=== PATIENT | male | born 1950 | race Caucasian/White ===

== ENCOUNTER → 2024-08-03 | Outpatient (CLI) | payer MEDICARE ==
[2024-08-03 09:31] LABS: African American GFR (CKD) >90 (>60 ml/min/1.73 sqM); Blood Urea Nitrogen 7 mg/dL (9-20); Non-African American GFR(CKD) >90 (>60 ml/min/1.73 sqM)
--- NOTE | 2024-08-03 11:24 | CT ---
EXAMINATION TYPE: CT abdomen pelvis w con CT DLP: 1241.8 mGycm, Automated exposure control for dose reduction was used. DATE OF EXAM: 08/03/2024 11:03 AM COMPARISON: CT abdomen pelvis 07/06/2024 CLINICAL INDICATION:Male, 73 years old with history of Hx perforated appendix; Hx perforated appendix . TECHNIQUE: Standard CT of the abdomen and pelvis following the administration of 100 cc of Isovue 3 00 IV contrast material and oral contrast. Coronal and sagittal reformats were performed. FINDINGS: LOWER CHEST: The visualized lung bases are clear. Coronary artery calcifications. ABDOMEN LIVER: Unremarkable GALLBLADDER AND BILE DUCTS: Unremarkable. PANCREAS: Unremarkable. SPLEEN: Unremarkable. ADRENAL GLANDS: Unremarkable. KIDNEYS AND URETERS: No evidence of hydronephrosis or renal calculus. The kidneys enhance symmetrical ly. Right renal subcentimeter cortical cyst. Contrast is demonstrated within both collecting systems and proximal ureters on delayed phase. PELVIS BLADDER: Incompletely distended but grossly unremarkable. REPRODUCTIVE: Prostate is enlarged in size measuring 5.2 cm in transverse dimension. ABDOMEN & PELVIS STOMACH AND BOWEL: Stomach and duodenum are unremarkable. Redemonstration of dilated appendix measuri ng up to 1.5 cm in diameter. This contains a fluid. There is significant improvement in surrounding i nflammatory changes from prior exam. No appendicolith identified. No surrounding fluid collection. En teric contrast reaches the ileocecal junction. No evidence of bowel obstruction. PERITONEUM: No evidence of pneumoperitoneum or free fluid. VASCULATURE: Moderate atherosclerotic calcifications are present throughout the abdominal aorta and i ts branches. Tortuosity of the abdominal aorta. Stable fusiform infrarenal abdominal aortic aneurysm measuring up to 4.0 cm with eccentric mural thrombus. MUSCULOSKELETAL: No acute osseous abnormalities. 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 Degenerative disc disease at L3-L4. LYMPH NODES: No evidence for lymphadenopathy. SOFT TISSUE/ABDOMINAL WALL: Unremarkable IMPRESSION: 1. Redemonstration of dilated appendix most consistent with acute appendicitis however there is sign ificant improvement in surrounding inflammatory changes from prior exam on 07/06/2024. No evidence for perforation or surrounding abscess on current exam. 2. Stable infrarenal abdominal aortic aneurysm measuring up to 4.0 cm. 3. Prostatomegaly. [facility], , 08/03/2024 11:21 AM
== END | disposition home or self-care (01) ==
LOC: RADCTMAIN 08:22
PROVIDERS: ATTEND Surgery
DX: K35.32 Acute appendicitis with perforation, localized peritonitis, and gangrene, without abscess (principal); I71.43 Infrarenal abdominal aortic aneurysm, without rupture; N40.0 Benign prostatic hyperplasia without lower urinary tract symptoms
CPT/HCPCS: 82565; 84520; 74177; 36415; Q9967

== ENCOUNTER 2024-08-04 10:52 | Emergency (ER) | payer MEDICARE ==
--- NOTE | 2024-08-04 11:36 | ED ---
General Adult HPI - General Chief complaint: Abdominal Pain Stated complaint: abd pain Time Seen by Provider: 08/04/24 11:09 Source: patient, RN notes reviewed Mode of arrival: ambulatory Limitations: no limitations - History of Present Illness Initial comments: Patient is a 73-year-old male present to the emergency department with abdominal discomfort. Onset of symptoms was the past couple of days. Discomfort is mild. Patient did have outpatient CT scan concerning for a dilated appendix. No fevers. No nausea or vomiting. Patient did have perforated appendicitis with surgical intervention a month ago. Patient was cleaned out however was unable to have appendix removed at that time. - Related Data Home Medications Medication Instructions Recorded Confirmed Acetaminophen Tab [Tylenol Tab] 1,000 mg PO QID PRN 08/04/24 08/04/24 Previous Rx's Medication Instructions Recorded amLODIPine [Norvasc] 10 mg PO DAILY #30 tab 07/13/24 Allergies Allergy/AdvReac Type Severity Reaction Status Date / Time No Known Allergies Allergy Verified 08/04/24 11:40 Review of Systems ROS Statement: Those systems with pertinent positive or pertinent negative responses have been documented in the HPI. ROS Other: All systems not noted in ROS Statement are negative. Constitutional: Denies: fever Eyes: Denies: eye pain ENT: Denies: ear pain Respiratory: Denies: dyspnea Cardiovascular: Denies: chest pain Gastrointestinal: Reports: as per HPI, abdominal pain Neurological: Denies: weakness Past Medical History Past Medical History: No Reported History History of Any Multi-Drug Resistant Organisms: None Reported Past Surgical History: Appendectomy Past Anesthesia/Blood Transfusion Reactions: No Reported Reaction Past Psychological History: No Psychological Hx Reported Smoking Status: Former smoker Past Alcohol Use History: None Reported Past Drug Use History: None Reported General Exam Limitations: no limitations General appearance: alert, in no apparent distress Head exam: Present: normocephalic Eye exam: Present: normal appearance Neck exam: Present: normal inspection Respiratory exam: Present: normal lung sounds bilaterally Cardiovascular Exam: Present: regular rate, normal rhythm GI/Abdominal exam: Present: soft, tenderness (Mild tenderness right lower abdom en), normal bowel sounds. Absent: distended, guarding, rebound, rigid, pulsatile mass Extremities exam: Present: normal inspection Neurological exam: Present: alert Psychiatric exam: Present: normal affect, normal mood Skin exam: Present: normal color Course Vital Signs 03/05/25 10:54 Temperature 98 F Pulse Rate 80 Respiratory 20 Rate Blood Pressure 162/96 O2 Sat by Pulse 98 Oximetry Medical Decision Making - Medical Decision Making Was pt. sent in by a medical professional or institution ([facility], [facility] [employer], urgent care, hospital, or skilled nursing...) When possible be specific @ -Patient was sent in by primary care physician Did you speak to anyone other than the patient for history (EMS, parent, family, police, friend...)? What history was obtained from this source @ -Family is present helps provide history including previous surgery and recent CT Did you review nursing and triage notes (agree or disagree)? Why? @ -I reviewed and agree with nursing and triage notes Were old charts reviewed (outside hosp., previous admission, EMS record, old EKG, old radiological studies, urgent care reports/EKG's, skilled nursing records)? Report findings @ -Previous admission surgical report reviewed. Differential Diagnosis (chest pain, altered mental status, abdominal pain women, abdominal pain men, vaginal bleeding, weakness, fever, dyspnea, syncope, headache, dizziness, GI bleed, back pain, seizure, CVA, palpatations, mental health, musculoskeletal)? @ -Differential Abdominal Pain Men: Appendicitis, cholecystitis, diverticulosis, ischemic bowel, pancreatitis, hepat itis, UTI, gastroenteritis, AAA, incarcerated hernia, bowel obstruction, constipation, inflammatory bowel, hepatitis, peptic ulcer disease, splenic infarction, perforated viscus, testicular torsion, this is not meant to be an all-inclusive list EKG interpreted by me (3pts min.). @ -As above X-rays interpreted by me (1pt min.). @ -None done CT interpreted by me (1pt min.). @ -None done U/S interpreted by me (1pt. min.). @ -None done What testing was considered but not performed or refused? (CT, X-rays, U/S, labs)? Why? @ -Consider CT scan however was done prior to arrival What meds were considered but not given or refused? Why? @ -None Did you discuss the management of the patient with other professionals (professionals i.e. [facility], [employer], lab, RT, psych nurse, neonatal social worker, group home manager, t eacher, retail loss prevention officer, disease case manager)? Give summary @ -Case was discussed with Dr. Hanley. This includes patient presentation, CT results and blood work. He did discuss case with also with Dr. Ni. He did state if patient wants to go home and follow-up that is acceptable and they will plan with further surgery next month as planned. If patient is having pain and are uncomfortable with that he can stay for further care at this time. Was smoking cessation discussed for >3mins.? @ -No Was critical care preformed (if so, how long)? @ -No Were there social determinants of health that impacted care today? How? (Homelessness, low income, unemployed, alcoholism, drug addiction, transportation, low edu. Level, literacy, decrease access to med. care, senior care, rehab)? @ -No Was there de-escalation of care discussed even if they declined (Discuss DNR or withdrawal of care, Hospice)? DNR status @ -No What co-morbidities impacted this encounter? (DM, HTN, Smoking, COPD, CAD, Cancer, CVA, ARF, Chemo, Hep., AIDS, mental health diagnosis, sleep apnea, morbid obesity)? @ -Recent ruptured appendicitis Was patient admitted / discharged? Hospital course, mention meds given and route, prescriptions, significant lab abnormalities, going to OR and other pertinent info. @ -Patient presents with abdominal discomfort and dilated appendix on CT. Abdomen is soft with mild tenderness right lower abdomen. On reevaluation patient is updated on results and recommendation. Patient states he is doing well and wants to go for follow-up. Patient does not want to stay in the hospital. Undiagnosed new problem with uncertain prognosis? @ -No Drug Therapy requiring intensive monitoring for toxicity (Heparin, Nitro, Insulin, Cardizem)? @ -No Were any procedures done? @ -No Diagnosis/symptom? @ -Abdominal pain Acute, or Chronic, or Acute on Chronic? @ -Acute on chronic Uncomplicated (without systemic symptoms) or Complicated (systemic symptoms)? @ -Default Side effects of treatment? @ -No Exacerbation, Progression, or Severe Exacerbation? @ -No Poses a threat to life or bodily function? How? (Chest pain, [place], [place], pneumonia, PE, COPD, DKA, ARF, appy, cholecystitis, CVA, Diverticulitis, Homicidal, Suicidal, threat to staff... and all critical care pts) @ -No - Lab Data Result diagrams: 08/04/24 12:04 08/04/24 12:04 Lab Results 08/04/24 08/04/24 08/04/24 Range/Units 12:04 12: 12:04 WBC 7.7 (3.8-10.6) k/uL RBC 5.17 (4.30-5.90) m/uL Hgb 14.7 (13.0-17.5) gm/dL Hct 45.7 (39.0-53.0) % MCV 88.4 (80.0-100.0) fL MCH 28.4 (25.0-35.0) pg MCHC 32.1 (31.0-37.0) g/dL RDW 13.2 (11.5-15.5) % Plt Count 286 (150-450) k/uL MPV 7.3 Neutrophils % 71 % Lymphocytes % 18 % Monocytes % 6 % Eosinophils % 2 % Basophils % 1 % Neutrophils # 5.5 (1.3-7.7) k/uL Lymphocytes # 1.4 (1.0-4.8) k/uL Monocytes # 0.5 (0-1.0) k/uL Eosinophils # 0.2 (0-0.7) k/uL Basophils # 0.0 (0-0.2) k/uL PT 10.7 (10.0-12.5) sec INR 1.0 (<1.2) APTT 23.0 (22.0-30.0) sec Sodium 137 (137-145) mmol/L Potassium 4.2 (3.5-5.1) mmol/L Chloride 102 (98-107) mmol/L Carbon Dioxide 25 (22-30) mmol/L Anion Gap 10 mmol/L BUN 9 (9-20) mg/dL Creatinine 0.56 L (0.66-1.25) mg/dL Est GFR (CKD-EPI)AfAm >90 (>60 ml/min/1.73 sqM) Est GFR (CKD-EPI)NonAf >90 (>60 ml/min/1.73 sqM) Glucose 100 H (74-99) mg/dL Calcium 9.5 (8.4-10.2) mg/dL Total Bilirubin 0.4 (0.2-1.3) mg/dL AST 18 (17-59) U/L ALT 19 (4-49) U/L Alkaline Phosphatase 68 (38-126) U/L Total Protein 7.2 (6.3-8.2) g/dL Albumin 4.3 (3.5-5.0) g/dL Amylase 51 (30-110) U/L Lipase 67 (23-300) U/L Disposition Clinical Impression: Abdominal pain Disposition: HOME SELF-CARE Condition: Stable Instructions (If sedation given, give patient instructions): Abdominal Pain (ED) Additional Instructions: Please do follow-up with your surgeon in the next day or 2 for recheck. Return for increased pain, fever, vomiting, worsening or changing symptoms or any other concerns. Is patient prescribed a controlled substance at d/c from ED?: No Referrals: Boaz Larios MD [Primary Care Provider] - 1-2 days Time of Disposition: 14:15
[2024-08-04 12:17] LABS: Basophils % (A) 1 %; Eosinophils # (A) 0.2 k/uL (0-0.7); Eosinophils % (A) 2 %; HCT 45.7 % (39.0-53.0); HGB 14.7 gm/dL (13.0-17.5); Lymphocytes # (A) 1.4 k/uL (1.0-4.8); Lymphocytes % (A) 18 %; MCH 28.4 pg (25.0-35.0); MCHC 32.1 g/dL (31.0-37.0); MCV 88.4 fL (80.0-100.0); Mean Platelet Volume 7.3; Monocytes # (A) 0.5 k/uL (0-1.0); Monocytes % (A) 6 %; Neutrophils # (A) 5.5 k/uL (1.3-7.7); Neutrophils % (A) 71 %; Platelet Count 286 k/uL (150-450); RBC 5.17 m/uL (4.30-5.90); RDW 13.2 % (11.5-15.5); WBC 7.7 k/uL (3.8-10.6)
[2024-08-04 12:36] LABS: ALT 19 U/L (4-49); AST 18 U/L (17-59); African American GFR (CKD) >90 (>60 ml/min/1.73 sqM); Albumin 4.3 g/dL (3.5-5.0); Alkaline Phosphatase 68 U/L (38-126); Amylase 51 U/L (30-110); Anion Gap 10 mmol/L; Blood Urea Nitrogen 9 mg/dL (9-20); Calcium 9.5 mg/dL (8.4-10.2); Carbon Dioxide 25 mmol/L (22-30); Chloride 102 mmol/L (98-107); Glucose 100 mg/dL (74-99); Lipase 67 U/L (23-300); Non-African American GFR(CKD) >90 (>60 ml/min/1.73 sqM); Potassium 4.2 mmol/L (3.5-5.1); Sodium 137 mmol/L (137-145); Total Bilirubin 0.4 mg/dL (0.2-1.3); Total Protein 7.2 g/dL (6.3-8.2)
[2024-08-04 12:51] LABS: Prothrombin Time 10.7 sec (10.0-12.5)
[2024-08-04 14:09] VITALS: BP 134/81; PULSE 75; RESP 18; TEMP 98.5
== END 2024-08-04 14:24 | disposition home or self-care (01) ==
LOC: EC 10:52
DX: R10.31 Right lower quadrant pain (principal); Z87.891 Personal history of nicotine dependence
CPT/HCPCS: 36415; 80053; 82150; 83690; 85025; 85610; 85730; 99284

== ENCOUNTER 2024-08-31 13:20 | Day surgery (SDC) | payer MEDICARE ==
[2024-08-30 10:48] VITALS: BMI 28.5
[~2024-08-31 13:20] MED LIST: LIDOCAINE 1% (10MG/ML) FOR IV START INTRADERMA PRN
[2024-08-31 13:57] VITALS: TEMP 98.8
[2024-08-31] MEDS: IV FLUID CONTINUATION 1,000 ML IV ONE (14:05)
[2024-08-31] MEDS: LACTATED RINGERS 1,000 ML IV SCH (14:06)
[2024-08-31] MEDS ORDERED: PROPOFOL 10 MG/ML 20 ML VIAL IV ONE (15:53)
[2024-08-31 16:26] VITALS: RESP 16
[2024-08-31 16:47] VITALS: BP 126/69; PULSE 71
--- NOTE | 2024-08-31 20:52 | P.OP ---
Date of Procedure: 08/31/24 Preoperative Diagnosis: Constipation Postoperative Diagnosis: Sessile Sigmoid Polyp Procedure(s) Performed: Colonoscopy with Polyp Biopsy Anesthesia: MAC Surgeon: Estiven Mcclendon Pathology: other (Polyp Biopsy) Condition: stable Disposition: PACU Description of Procedure: After informed consent was obtained, the patient was placed in the left lateral position and the above medications were titrated with adequate sedation. Monitoring was provided throughout the entire procedure. Digital rectal exam was performed revealing normal sphincter tone and no external hemorrhoids. The colonoscope was inserted into rectum and advanced under direct visualization, without difficulty, to the cecum, where the cecal strap, appendiceal orifice, and the ileocecal valve were identified. The quality of the preparation was good. The colonoscope was then withdrawn while carefully examining the mucosa. The colonic mucosa appeared normal with normal vascularity and haustral markings. No masses, AVM/s or diverticula were seen. There was a sessile sigmoid colon polyp was noted. A cold biopsy was performed of the polyp. On retroflexed view in the rectum, there were no internal hemorrhoids. The endoscope was removed and the procedure terminated. The patient tolerated the procedure well without complications.
== END 2024-08-31 17:05 | disposition home or self-care (01) ==
LOC: ORWHC2ENDO 13:20
PROVIDERS: ATTEND Surgery
DX: K56.41 Fecal impaction (principal); D12.7 Benign neoplasm of rectosigmoid junction
CPT/HCPCS: 88305; 45380; J2704

== ENCOUNTER 2024-10-05 10:46 | Day surgery (SDC) | payer MEDICARE ==
[2024-09-30 14:07] VITALS: BMI 30.4
[~2024-10-05 10:46] MED LIST changes: +HYDROmorphone 0.5 MG/0.5 ML SYRINGE IVP PRN; +MIDAZOLAM 2 MG/2 ML VIAL IV PRN; +fentaNYL (PF) 50 MCG/ML 2 ML AMP IVP PRN
[2024-10-05] MEDS: LACTATED RINGERS 1,000 ML IV SCH (11:39)
[2024-10-05] MEDS: DEXAMETHASONE SOD PHOSPHATE 4 MG/ML 1 ML VIAL IV ONE (11:40)
[2024-10-05] MEDS: ONDANSETRON 4 MG/2 ML VIAL IVP ONE (11:40)
[2024-10-05] MEDS: HEPARIN SODIUM,PORCINE 5,000 UNIT/ML 1 ML VIAL SQ PRN (11:43)
[2024-10-05] MEDS: IV FLUID CONTINUATION 1,000 ML IV ONE (11:45)
[2024-10-05] MEDS ORDERED: fentaNYL (PF) 50 MCG/ML 2 ML AMP ONE (14:12)
[2024-10-05] MEDS ORDERED: ROCURONIUM 10 MG/ML (5 ML VIAL) IV ONE (14:12)
[2024-10-05] MEDS ORDERED: PROPOFOL 10 MG/ML 20 ML VIAL IV ONE (14:12)
[2024-10-05] MEDS ORDERED: NEOSTIGMINE 1 MG/ML 10 ML VIAL ONE (14:12)
[2024-10-05] MEDS ORDERED: GLYCOPYRROLATE 0.2 MG/ML 2 ML VIAL ONE (14:12)
[2024-10-05] MEDS ORDERED: HYDROmorphone (PF) 1 MG/ML ONE (14:12)
[2024-10-05] MEDS ORDERED: SUCCINYLCHOLINE CHLORIDE 200 MG/10 ML VIAL IV ONE (14:12)
[2024-10-05] MEDS ORDERED: MIDAZOLAM 2 MG/2 ML VIAL ONE (14:12)
[2024-10-05] MEDS ORDERED: LIDOCAINE 1% INJ 10MG/ML (20 ML MDV) ONE (14:12)
[2024-10-05] MEDS: ceFAZolin 2 GM in DEXTROSE 5% IN WATER 50 ML IVPB PRN (14:17)
[2024-10-05] MEDS ORDERED: HYDROmorphone 1 MG/ML 1 ML SYRINGE IVP PRN (15:57)
[2024-10-05] MEDS ORDERED: ONDANSETRON 4 MG/2 ML VIAL IVP PRN (17:10)
[2024-10-05] MEDS: PIPERACILLIN-TAZOBACTAM 3.375 GM in SODIUM CHLORIDE 0.9% 100 ML IVPB SCH (18:51)
--- NOTE | 2024-10-05 19:37 | P.CONS ---
History of Present Illness - Reason for Consult Consult date: 10/05/24 - History of Present Illness History of present illness; Patient is a 73-year-old male with history of hypertension, hyperlipidemia who presents for planned appendectomy with possible ileocecectomy. This July, patient had ruptured appendicitis status post partial appendectomy with drainage which was complicated by sepsis. He did undergo colonoscopy with no malignant findings. Patient then followed up with general surgery outpatient and had planned surgery today. Patient is now postop with no known surgical complications. Patient is sitting up in bed resting with no complaints of pain. Patient reports absence of fever, chills, chest pain, palpitations, dyspnea, cough, nausea, vomiting, abdominal pain. Internal medicine was consulted for medical management. REVIEW OF SYSTEMS: All systems reviewed, pertinent positives and negatives noted in HPI. All other symptoms are negative. PHYSICAL EXAMINATION: Vitals reviewed GENERAL: Resting comfortably in bed. Obese. EYES: PERRL, no scleral injection or icterus. No vision loss HENT: Normocephalic, atraumatic, hearing grossly intact, moist mucous membranes NECK: No tracheal deviation, full range of motion. CARDIOVASCULAR: S1 and S2 present. No murmurs, rubs, or gallops. PULMONARY: Chest is clear to auscultation, no wheezing, rhonchi, or crackles. ABDOMEN: Soft, nontender, nondistended. No palpable organomegaly. Closed surgical site incisions. MUSCULOSKELETAL: No apparent joint swelling and deformities. EXTREMITIES: No apparent cyanosis, clubbing. No pedal edema. NEUROLOGICAL: Alert and oriented. Gross neurological examination with no appa rent focal deficits. No labs or imaging completed. Assessment and plan Patient is a 73-year-old male with history of hypertension, hyperlipidemia who presents for planned appendectomy with possible ileocecectomy. #Hypertension Resume home Norvasc 10 mg #Hyperlipidemia Resume home Lipitor 40 mg # Laproscopic Appendectomy -Pain management and DVT prophylaxis per primary surgical team - On IV Zosyn per surgery, consider discontinuing F: IV LR 20 mL/hr E: Replete as needed N: Clear liquid diet Code status: Full code Patient is otherwise medically optimized for discharge Follow up CBC and BMP in AM Dictation was produced using [employer] dictation software. Please excuse any grammatical, word or spelling errors. I have seen and evaluated the patient today. Discussed with the resident and agree with the residents finding and plan as documented in the resident's note. Changes highlighted in blue font. Past Medical History Past Medical History: Hyperlipidemia, Hypertension Additional Past Medical History / Comment(s): ruptured appendix 07/06/24 - 07/13/24, 4.1cm AAA is being monitored History of Any Multi-Drug Resistant Organisms: None Reported Past Surgical History: Appendectomy Additional Past Surgical History / Comment(s): laparoscopy w/ abdominal washout 07/06/24 Past Anesthesia/Blood Transfusion Reactions: No Reported Reaction Past Psychological History: No Psychological Hx Reported Smoking Status: Former smoker Past Alcohol Use History: None Reported Additional Past Alcohol Use History / Comment(s): quit smoking 07/05/24 smoked 1- 1.5ppd x 50 yrs. Past Drug Use History: None Reported - Past Family History Father Additional Family Medical History / Comment(s): bleeding ulcer, age 59 Mother Family Medical History: Cancer Additional Family Medical History / Comment(s): liver cancer, 58 Medications and Allergies Home Medications Medication Instructions Recorded Confirmed Type Acetaminophen Tab [Tylenol Tab] 1,000 mg PO QID PRN 08/04/24 09/30/24 History amLODIPine [Norvasc] 10 mg PO QAM 08/30/24 09/30/24 History Atorvastatin [Lipitor] 40 mg PO DAILY 09/30/24 09/30/24 History Allergies Allergy/AdvReac Type Severity Reaction Status Date / Time No Known Allergies Allergy Verified 10/05/24 11:22 Physical Exam Vitals: Vital Signs Temp Pulse Pulse Resp BP BP Pulse Ox 10/05/24 18:05 97.3 F L 108 H 18 131/76 95 10/05/24 17:25 95 18 131/69 94 L 10/05/24 17:10 95 18 120/66 93 L 10/05/24 16:55 92 18 133/79 92 L 10/05/24 16:40 96 18 130/70 97 10/05/24 16:25 92 18 143/91 97 10/05/24 16:10 92 18 152/72 91 L 10/05/24 15:55 89 16 155/73 95 10/05/24 15:39 89 16 164/83 92 L 10/05/24 15:24 98.1 F 92 16 181/81 98 10/05/24 11:30 98.1 F 79 16 144/77 98 Intake and Output 10/05/24 10/05/24 10/05/24 06:59 14:59 22:59 Intake Total 1650 0 Output Total 10 Balance 1650 -10 Intake: IV 1650 0 Output: Estimated Blood Loss 10 Other: Weight 91.1 kg 91.1 kg
--- NOTE | 2024-10-06 05:25 | P.PN ---
Progress Note - Text Progress Note Date: 10/05/24 Patient underwent Robotic Interval Appendectomy. Formal Operative Note to follow
[2024-10-06] MEDS: HYDROcodone/APAP 10-325MG 1 EACH TAB PO PRN (07:55)
[2024-10-06] MEDS: amLODIPine 10 MG TAB PO SCH (07:55)
[2024-10-06] MEDS: ATORVASTATIN 40 MG TAB PO SCH (07:55)
[2024-10-06 08:31] LABS: Blood Urea Nitrogen 10.5 mg/dL (9.0-27.0); Calcium 8.9 mg/dL (8.7-10.3); Carbon Dioxide 20.3 mmol/L (21.6-31.8); Chloride 105 mmol/L (96-109); Glucose 116 mg/dL (70-110); Potassium 4.2 mmol/L (3.5-5.5); Sodium 139 mmol/L (135-145)
[2024-10-06 08:32] LABS: Basophils # (A) 0.01 X 10*3/uL (0.00-0.10); Basophils % (A) 0.1 %; Eosinophils # (A) 0 X 10*3/uL (0.04-0.35); Eosinophils % (A) 0 %; HCT 40.9 % (39.6-50.0); HGB 13.6 g/dL (13.0-17.0); Lymphocytes # (A) 1.06 X 10*3/uL (0.90-5.00); Lymphocytes % (A) 10.1 %; MCH 28.8 pg (27.0-32.0); MCHC 33.3 g/dL (32.0-37.0); MCV 86.5 FL (80.0-97.0); Mean Platelet Volume 11.1 FL (9.5-12.2); Monocytes # (A) 0.56 X 10*3/uL (0.20-1.00); Monocytes % (A) 5.3 %; NRBC Per 100 WBC 0 X 10*3/uL (0.00-0.01); Neutrophils # (A) 8.79 X 10*3/uL (1.80-7.70); Neutrophils % (A) 83.9 %; Platelet Count 278 X 10*3/uL (140-440); RBC 4.73 X 10*6/uL (4.40-5.60); RDW 13.8 % (11.5-14.5); WBC 10.48 X 10*3/uL (4.50-10.00)
--- NOTE | 2024-10-06 12:54 | P.PN ---
Subjective Progress Note Date: 10/06/24 SURGICAL PROGRESS NOTE CHIEF COMPLAINT: History of perforated appendicitis HISTORY OF PRESENT ILLNESS: Patient is postop day #1 status post robotic appendectomy. Pain is controlled. Tolerating clear liquid diet. Denies any flatus. Denies any difficulty urinating. Afebrile. WBC 10.48 Hgb 13.6 PHYSICAL EXAM: VITAL SIGNS: Reviewed. GENERAL: Well-developed in no acute distress. ABDOMEN: Soft. Nondistended. Minimal tenderness at incision sites. Incisions clean dry and intact. NEUROLOGIC: Alert and oriented. Cranial nerves II through XII grossly intact. ASSESSMENT: 1. History of perforated appendicitis PLAN: - Advance diet to full liquids - Continue antibiotics -Continue pain management -Encourage patient to ambulate -Anticipate possible discharge tomorrow -DVT prophylaxis subcu heparin Physician [facility] note has been reviewed by physician. Signing provider agrees with the documented findings, assessment, and plan of care. Attestation Patient seen and examined at bedside. Postoperative day #1, robotic appendectomy. Patient appears to be doing well. States pain is controlled. Tolerating clear liquid diet. No flatus or bowel function as of yet. Recommended increasing activity. Will advance diet. Continue antibiotics for now. Likely discharge tomorrow. Marti Hanley, DO Objective - Vital Signs Vital signs: Vital Signs Temp 97.8 F 10/06/24 07:07 Pulse 89 10/06/24 07:07 Resp 16 10/06/24 07:07 BP 169/84 10/06/24 07:07 Pulse Ox 94 L 10/06/24 07:07 FiO2 Intake & Output 10/05/24 10/06/24 10/06/24 18:59 06:59 18:59 Intake Total 1650 520 Output Total 10 Balance 1640 520 Weight 91.1 kg Intake: IV 1650 Oral 520 Output: Estimated Blood Loss 10 Other: Voiding Method Toilet # Voids 5 - Labs CBC & Chem 7: 10/06/24 03:46 10/06/24 03:46 Labs: Abnormal Lab Results - Last 24 Hours (Table) 10/06/24 10/06/24 Range/Units 03:46 03:46 WBC 10.48 H (4.50-10.00) X 10*3/uL Immature Gran # 0.06 H (0.00-0.04) X 10*3/uL Neutrophils # 8.79 H (1.80-7.70) X 10*3/uL Eosinophils # 0 L (0.04-0.35) X 10*3/uL Carbon Dioxide 20.3 L (21.6-31.8) mmol/L Anion Gap 13.70 H (4.00-12.00) mmol/L Glucose 116 H (70-110) mg/dL
--- NOTE | 2024-10-06 15:23 | P.PN ---
Subjective Progress Note Date: 10/06/24 Hospital course: Patient is a very pleasant 73-year-old male with a past medical history of hypertension, hyperlipidemia, and known infrarenal aneurysm measuring up to 4.1 cm.. He is currently admitted under general surgery team status post planned laparoscopic appendectomy. Patient previously diagnosed with ruptured appendicitis and underwent partial appendectomy with drainage, course was complicated by sepsis and therefore further surgical procedures were delayed. Patient underwent laparoscopic appendectomy with Dr. Mcclendon on 10/05/2024. We were consulted for medical management throughout hospitalization. Physical exam: Patient seen and fully evaluated at bedside this morning. He was sitting up in the chair visiting with at bedside. He currently reports feeling great and states pain is much better controlled than anticipated. He is tolerating clear liquid diet and denies having any nausea or vomiting. Vital signs reviewed and stable. General: Nontoxic, no distress and appears stated age. Derm: Skin warm and dry normal coloration for ethnicity. Head: Atraumatic, normocephalic and symmetric. Eyes: EOM's intact, no lid lag, and anicteric sclera Mouth: no lip lesions, mucus membranes moist Cardiovascular: regular rate and rhythm with normal S1S2, no murmur, positive posterior tibial pulses bilaterally, and cap refill < 2 seconds. Lungs: Respirations even, regular, and unlabored on room air. Lungs CTA bilaterally, no rhonchi, no rales, no wheezing, and no accessory muscle usage. Abdominal: soft distended, nontender to palpation, no guarding, no appreciable organomegaly. Laparoscopic incisions intact, no drainage or surrounding erythema. Ext: ROM intact. No gross muscle atrophy, no edema, no contractures Neuro: Speech clear, face symmetrical and CN II-XII grossly intact with no noted focal neuro deficits Psych: Alert and oriented to person, place, time, and situation. Appropriate and pleasant affect. Assessment and Plan of Care: Status post laparoscopic appendectomy - Management per primary admitting general surgery team including DVT prophylaxis, pain management, and advancement of diet. - Currently on DVT prophylaxis with heparin 5000 units every 12 hours. - Continue IV antibiotics with Zosyn 3.375 g every 8 hours. - Encourage use of incentive spirometry. Hypertension - Continue daily medication regimen with amlodipine 10 mg daily. Hyperlipidemia - Continue atorvastatin 40 mg daily. Infrarenal fusiform abdominal aortic aneurysm, 4.1 cm - Continue to follow-up outpatient with vascular surgery outpatient for elisha veillance monitoring and management. - Monitor blood pressures, avoid hypertension. Goal therapeutic range is to maintain systolic pressure less than 140 and diastolic pressure less than 110. Continue amlodipine 10 mg daily. Data reviewed - Morning labs reviewed. CBC showing mild leukocytosis with WBC count of 10.48. BMP showing mild metabolic acidosis with chloride of 105, bicarb of 20.3, and anion gap of 13.70. Blood glucose was 116. - Vital signs reviewed. Blood pressure 132/78, heart rate 80, respiratory rate 17, temp 97.7 F, and SpO2 of 96% on room air Thank you for allowing us to participate in the care of this pleasant patient. Do not hesitate to contact us with questions. Someone can be reached from the [facility] hospitalist group all hours of the day at [phone] or via [employer]. Patient was seen independently by Nurse Pracitioner. This document was prepared using [employer] dictation software. Please allow for e rrors in laboratory tech, while rare they do occur. Jass Phelan NP rendered care for this patient independently, reviewed the findings and plan as documented in the note above and agree with plan. I did not physically speak with or examine the patient on this date. Objective - Vital Signs Vital signs: Vital Signs Temp 97.6 F 10/06/24 00:25 Pulse 91 10/06/24 00:25 Resp 18 10/06/24 00:25 BP 139/80 10/06/24 00:25 Pulse Ox 94 L 10/06/24 00:25 FiO2 Intake & Output 10/05/24 10/06/24 10/06/24 18:59 06:59 18:59 Intake Total 1650 520 Output Total 10 Balance 1640 520 Weight 91.1 kg Intake: IV 1650 Oral 520 Output: Estimated Blood Loss 10 Other: Voiding Method Toilet # Voids 5 - Labs CBC & Chem 7: 10/06/24 03:46 10/06/24 03:46
[2024-10-06] MEDS: HEPARIN SODIUM,PORCINE 5,000 UNIT/ML 1 ML VIAL SQ SCH (20:52)
[2024-10-07 08:31] LABS: HCT 42.7 % (39.6-50.0); MCH 28.6 pg (27.0-32.0); MCHC 32.8 g/dL (32.0-37.0); MCV 87.1 FL (80.0-97.0); Mean Platelet Volume 11.3 FL (9.5-12.2); NRBC Per 100 WBC 0 X 10*3/uL (0.00-0.01); Platelet Count 286 X 10*3/uL (140-440); RDW 13.9 % (11.5-14.5); WBC 10.08 X 10*3/uL (4.50-10.00)
[2024-10-07 08:57] VITALS: BP 152/79; PULSE 79; RESP 17; TEMP 97.5
[2024-10-07 09:06] LABS: BUN/Creat Ratio 12.71 Ratio (12.00-20.00); Blood Urea Nitrogen 8.9 mg/dL (9.0-27.0); Calcium 9.3 mg/dL (8.7-10.3); Carbon Dioxide 19.7 mmol/L (21.6-31.8); Chloride 104 mmol/L (96-109); Glucose 107 mg/dL (70-110); Magnesium 2.1 mg/dL (1.5-2.4); Potassium 3.8 mmol/L (3.5-5.5); Sodium 140 mmol/L (135-145)
--- NOTE | 2024-10-07 12:24 | P.DS ---
Providers Expected date of discharge: 10/07/24 Attending physician: Estiven Mcclendon DO Consults: 10/05/24 15:56 Consult Physician Routine Consulting Provider: Sandra Reilly Consult Reason/Comments: Medical Management Do you want consulting provider notified?: Yes Primary care physician: Hira Larios MD Hospital Course: Discharge diagnosis 1. History of perforated appendicitis Hospital course This is a 73-year-old male with a history of perforated appendicitis. Patient is status post interval robotic appendectomy. Patient tolerated surgery well. His pain is controlled. He has been up ambulating. He is tolerating diet. He is having bowel movements and flatus. Denies any difficulty urinating. Patient is stable for discharge. Please refer to chart for any further details. Physician Drier Tender Naphthalene note has been reviewed by physician. Signing provider agrees with the documented findings, assessment, and plan of care. Attestation Patient seen and examined at bedside. Noted to have history of perforated appendicitis and did provide for interval robotic appendectomy. Patient has been doing well in the postoperative period. Pain is controlled and patient having bowel function. Tolerating diet. Surgically stable for discharge. Marti Hanley DO Patient Condition at Discharge: Stable Plan - Discharge Summary Discharge Rx Participant: No New Discharge Prescriptions: New HYDROcodone/APAP 5-325MG [[place] 5-325] 1 tab PO Q6HR PRN 3 Days #12 tab PRN Reason: Pain Continue Acetaminophen Tab [Tylenol] 1,000 mg PO QID PRN PRN Reason: Fever And/ Or Pain amLODIPine [Norvasc] 10 mg PO QAM Atorvastatin [Lipitor] 40 mg PO DAILY Discharge Medication List Acetaminophen Tab [Tylenol] 1,000 mg PO QID PRN 08/04/24 [History] amLODIPine [Norvasc] 10 mg PO QAM 08/30/24 [History] Atorvastatin [Lipitor] 40 mg PO DAILY 09/30/24 [History] HYDROcodone/APAP 5-325MG [[place] 5-325] 1 tab PO Q6HR PRN 3 Days #12 tab 10/07/24 [Rx] Follow up Appointment(s)/Referral(s): Estiven Mcclendon DO [Medical Doctor] - 1 Week Activity/Diet/Wound Care/Special Instructions: No driving while taking [place] No lifting over 10 pounds You may shower. No soaking or tub baths for 2 weeks Very light activity until you are reevaluated at your follow up appointment with your surgeon Regular diet Discharge Disposition: HOME SELF-CARE
--- NOTE | 2024-10-07 16:11 | P.PN ---
Subjective Progress Note Date: 10/07/24 Hospital course: Patient is a very pleasant 73-year-old male with a past medical history of hypertension, hyperlipidemia, and known infrarenal aneurysm measuring up to 4.1 cm.. He is currently admitted under general surgery team status post planned laparoscopic appendectomy. Patient previously diagnosed with ruptured appendicitis and underwent partial appendectomy with drainage, course was complicated by sepsis and therefore further surgical procedures were delayed. Patient underwent laparoscopic appendectomy with Dr. Mcclendon on 10/05/2024. We were consulted for medical management throughout hospitalization. Physical exam: Patient seen and fully evaluated at bedside this morning. He was sitting up in the chair visiting with at bedside. He currently reports feeling great and states pain remains controlled. He is tolerating a full liquid diet and denies having any nausea, vomiting, or any other complaints at this time. Patient reports passing flatus. Vital signs reviewed and stable. General: Nontoxic, no distress and appears stated age. Derm: Skin warm and dry normal coloration for ethnicity. Head: Atraumatic, normocephalic and symmetric. Eyes: EOM's intact, no lid lag, and anicteric sclera Mouth: no lip lesions, mucus membranes moist Cardiovascular: regular rate and rhythm with normal S1S2, no murmur, positive posterior tibial pulses bilaterally, and cap refill < 2 seconds. Lungs: Respirations even, regular, and unlabored on room air. Lungs CTA bilaterally, no rhonchi, no rales, no wheezing, and no accessory muscle usage. Abdominal: soft distended, nontender to palpation, no guarding, no appreciable organomegaly. Laparoscopic incisions intact, no drainage or surrounding erythema. Ext: ROM intact. No gross muscle atrophy, no edema, no contractures Neuro: Speech clear, face symmetrical and CN II-XII grossly intact with no noted focal neuro deficits Psych: Alert and oriented to person, place, time, and situation. Appropriate and pleasant affect. Assessment and Plan of Care: Status post laparoscopic appendectomy - Management per primary admitting general surgery team including DVT prophylaxis, pain management, and advancement of diet. - Currently on DVT prophylaxis with heparin 5000 units every 12 hours. - Continue IV antibiotics with Zosyn 3.375 g every 8 hours. - Encourage use of incentive spirometry. Hypertension - Continue daily medication regimen with amlodipine 10 mg daily. Hyperlipidemia - Continue atorvastatin 40 mg daily. Infrarenal fusiform abdominal aortic aneurysm, 4.1 cm - Continue to follow-up outpatient with vascular surgery outpatient for surveillance monitoring and management. - Monitor blood pressures, avoid hypertension. Goal therapeutic range is to maintain systolic pressure less than 140 and diastolic pressure less than 110. Continue amlodipine 10 mg daily. Data reviewed -Morning labs reviewed. CBC showing mild leukocytosis with WBC count of 10.08 otherwise normal findings. BMP showing high anion gap metabolic acidosis with chloride of 104, bicarb of 19.7, and anion gap of 16.30. Blood glucose was 107. Magnesium 2.1. -Vital signs reviewed. Blood pressure 152/79, heart rate 79, respiratory rate 17, temp 97.5 F, and SpO2 of 96% on room air Patient medically optimized for discharge once cleared by primary admitting general surgery team. Thank you for allowing us to participate in the care of this pleasant patient. Do not hesitate to contact us with questions. Someone can be reached from the [facility] all hours of the day at [phone] or via [employer]. Patient was seen independently by Nurse Pracitioner. This document was prepared using [employer] dictation software. Please allow for errors in city planner, while rare they do occur. Jass Phelan, MIGUEL A rendered care for this patient independently, reviewed the findings and plan as documented in the note above and agree with plan. I did not physically speak with or examine the patient on this date. Objective - Vital Signs Vital signs: Vital Signs Temp 98.6 F 10/07/24 01:29 Pulse 83 10/07/24 01:29 Resp 20 10/07/24 01:29 BP 148/84 10/07/24 01:29 Pulse Ox 96 10/07/24 01:29 FiO2 Intake & Output 10/06/24 10/07/24 10/07/24 18:59 06:59 18:59 Intake Total 860 340 Balance 860 340 Intake: Intake, IV Titration 100 Amount Piperacillin-Tazobactam 3 100 .375 gm In Sodium Chloride 0.9% 100 ml @ 25 mls/hr IVPB Q8H [facility] Rx#: [id number] Oral 760 340 Other: Voiding Method Toilet # Voids 5 3 - Labs CBC & Chem 7: 10/07/24 04:47 10/07/24 04:47 Labs: Abnormal Lab Results - Last 24 Hours (Table) 10/07/24 Range/Units 04:47 WBC 10.08 H (4.50-10.00) X 10*3/uL
--- NOTE | 2024-10-09 10:44 | P.OP ---
Date of Procedure: 10/05/24 Preoperative Diagnosis: Appendicitis Postoperative Diagnosis: Appendicitis Procedure(s) Performed: Robotic Interval Appendectomy Anesthesia: DIRK Surgeon: Estiven Mcclendon Estimated Blood Loss (ml): 50 Pathology: other (Appendix) Condition: stable Disposition: PACU Description of Procedure: The patient was taken to the operating suite and placed in supine position. Anesthesia was given and endotracheal intubation was performed. The abdomen was prepped and draped in normal sterile fashion. A chung catheter was placed. A timeout was performed. An incision was made at melendrez's point and a 5 mm optiview was used to gain access to the abdomen. The abdomen was insufflated. The patient was positioned. Additional working robotic ports were placed in the abdomen including a 12 mm port in the left lower quadrant. The 5 mm port was exchanged for a 8 mm port. The robot was docked. The abdomen was inspected and there were dense adhesions in the right lower quadrant. The bowel was stuck to the side wall and gently taken down. The appendix was visualized and was noted to be acutely inflamed. A vessel sealer was used to take down the mesoappendix. A robotic 60 mm blue staple load was used to divide the appendix at cecal base. The appendix was removed through the 12 mm port. The robot was undocked and ports were removed. The 12 mm incision was closed with an #0 vicryl suture and a skyler nico device. The incisions were closed with #4-0 monocryl and skin glue was applied. The patient tolerated the procedure well and was sent to the PACU in stable condition.
== END 2024-10-07 13:42 | disposition home or self-care (01) ==
LOC: OR 10:46 → 4SSUR 15:15 → OR 10-07 13:42
PROVIDERS: ATTEND Surgery
DX: K36 Other appendicitis (principal); A41.9 Sepsis, unspecified organism; I10 Essential (primary) hypertension; E78.5 Hyperlipidemia, unspecified; E66.9 Obesity, unspecified; Z68.30 Body mass index [BMI] 30.0-30.9, adult; Z87.891 Personal history of nicotine dependence; Z80.0 Family history of malignant neoplasm of digestive organs; Z90.49 Acquired absence of other specified parts of digestive tract; Z79.02 Long term (current) use of antithrombotics/antiplatelets; Z79.899 Other long term (current) drug therapy
CPT/HCPCS: 44970; 88304; 80048 ×2; 83735; 85025; 85027; J2543 ×3; J2250; J0330; J1644 ×3; J1100; J2710; J0690; J2405; J2003; J3010; J1171; J2704; J1596

== ENCOUNTER 2024-11-04 07:22 | Inpatient (IN) | payer MEDICARE ==
[2024-11-04] MEDS ORDERED: ONDANSETRON 8 MG in SODIUM CHLORIDE 0.9% 50 ML IVPB ONE (07:51)
[2024-11-04] MEDS: SODIUM CHLORIDE 0.9% 1,000 ML IV ONE (08:01)
[2024-11-04] MEDS: ONDANSETRON 4 MG/2 ML VIAL IVP ONE (08:01)
--- NOTE | 2024-11-04 08:01 | ED ---
General Adult HPI <Martín Baker - Last Filed: 11/04/24 09:48> - General Source: patient, family, RN notes reviewed, old records reviewed Mode of arrival: ambulatory Limitations: no limitations <Eran Rincon - Last Filed: 11/04/24 14:29> - General Chief complaint: Abdominal Pain Stated complaint: Vomiting/Abd Pain - History of Present Illness Initial comments: 73-year-old male presents to the ED with complaints of abdominal pain, nausea, and vomiting. Of note patient states he was recently in the hospital a month ago for 2 surgeries which included drain placement after a ruptured appendix and a subsequent surgery to remove the appendix. Reports he has been feeling well since the surgery till the last few days when he started having increased abdominal distention nausea and vomiting. Denies any hematemesis melena or hematochezia. States he has been able to eat some toast and soup but usually vomits it back up few hours later. Reports he has not had any gas and his last bowel movement was yesterday which was mostly watery in nature, has not had a normal bowel movement for approximately 5 to 7 days. Admits that he has been able to keep water down. Reports since his vomiting had continued for the last 2 days he and his decided he was guided to come and get evaluated in the ER. (Eran Rincon) - Related Data Home Medications Medication Instructions Recorded Confirmed amLODIPine [Norvasc] 10 mg PO DAILY 08/30/24 11/04/24 Atorvastatin [Lipitor] 40 mg PO DAILY 09/30/24 11/04/24 Allergies Allergy/AdvReac Type Severity Reaction Status Date / Time No Known Allergies Allergy Verified 11/04/24 13:41 Review of Systems ROS Other: All systems not noted in ROS Statement are negative. <Martín Baker - Last Filed: 11/04/24 09:48> ROS Other: All systems not noted in ROS Statement are negative. <Eran Rincon - Last Filed: 11/04/24 14:29> ROS Statement: Those systems with pertinent positive or pertinent negative responses have been documented in the HPI. Past Medical History Past Medical History: Hyperlipidemia, Hypertension Additional Past Medical History / Comment(s): ruptured appendix 07/06/24 - 07/13/24, 4.1cm AAA is being monitored History of Any Multi-Drug Resistant Organisms: None Reported Past Surgical History: Appendectomy Additional Past Surgical History / Comment(s): laparoscopy w/ abdominal washout 07/06/24 Past Anesthesia/Blood Transfusion Reactions: No Reported Reaction Past Psychological History: No Psychological Hx Reported Smoking Status: Former smoker Past Alcohol Use History: None Reported Past Drug Use History: None Reported - Past Family History Father Additional Family Medical History / Comment(s): bleeding ulcer, age 59 Mother Family Medical History: Cancer Additional Family Medical History / Comment(s): liver cancer, 58 <Eran Rincon - Last Filed: 11/04/24 14:29> General Exam Limitations: no limitations <Eran Rincon - Last Filed: 11/04/24 14:29> - General Exam Comments Initial Comments: GENERAL: In no apparent distress at the time of examination. Pleasant and cooperative. HEENT: Head is atraumatic, normocephalic. Sclerae anicteric. Conjunctivae are clear. Mucus membranes of the mouth are moist. Neck is supple. RESPIRATORY: Clear to auscultation. No wheezes, rales, or rhonchi. No use of accessory muscles. Patient maintaining oxygen saturation greater than 92%. No chest wall tenderness is noted on palpation or with deep breathing. CARDIOVASCULAR: Regular rate and rhythm. S1 and S2 noted. No systolic or diastolic murmur auscultated. No JVD noted. No S3 or S4 noted. GASTROINTESTINAL: Significant distention noted. Abdomen somewhat soft and round. Normal active bowel sounds auscultated x 4 quadrants. No pain or tenderness noted upon palpation. INTEGUMENTARY: No cyanosis. No jaundice. No rashes noted. No cellulitis noted. PSYCHIATRIC: Awake, alert, and oriented X 3. Appropriate affect. Intact judgement and insight. (Eran Rincon) Course <Eran Rincon - Last Filed: 11/04/24 14:29> Vital Signs 11/04/24 11/04/24 11/04/24 07:25 10:44 12:00 Temperature 97.9 F Pulse Rate 92 94 91 Respiratory 19 18 17 Rate Blood Pressure 130/90 147/99 129/91 O2 Sat by Pulse 97 98 98 Oximetry - Reevaluation(s) Reevaluation #1: 11/04/24 09:51 Patient resting comfortably in bed, CT abdomen shows distal small bowel obstruction and CMP showed sodium of 128. (Eran Rincon) Medical Decision Making - Lab Data Result diagrams: 11/04/24 08:00 11/04/24 08:00 <Martín Baker - Last Filed: 11/04/24 09:48> - Lab Data Result diagrams: 11/04/24 08:00 11/04/24 08:00 <Eran Rincon - Last Filed: 11/04/24 14:29> - Medical Decision Making I personally saw the patient and performed the critical portion of the service. I discussed the patient care with the Dr. Coulter. I directed management, care planning and final disposition of the patient. This includes, but not limited to, review of all lab work, radiological studies, EKG's, consultations, vital signs, and nursing notes. EKG interpreted by me (3pts min.) @ [as above] X-Rays interpreted by me (1 pt min.) @ [none] CT interpreted by me ( 1pt min.) @Small bowel obstruction U/S interpreted by me (1 pt min.) @ [none] Critical care time of [0] minutes excluding separately billable procedures was spent in conjunction with critical care activities provided by the Resident and Attending simultaneously. I was present during [no procedures] for all critical portions of the procedure and as immediately available to furnish service during the entire procedure. (Martín Baker) Was pt. sent in by a medical professional or institution (, PA, AUTOMOTIVE SOFTWARE ENGINEER, urgent care, hospital, or alf...) When possible be specific @ -No Did you speak to anyone other than the patient for history (EMS, parent, family, police, friend...)? What history was obtained from this source @ -History also obtained from family Did you review nursing and triage notes (agree or disagree)? Why? @ -I reviewed and agree with nursing and triage notes Were old charts reviewed (outside hosp., previous admission, EMS record, old EKG, old radiological studies, urgent care reports/EKG's, alf records)? Report findings @ -Yes including recent operative notes from Dr. Mcclendon Differential Diagnosis? @ -Differential Abdominal Pain Men: Appendicitis, cholecystitis, diverticulosis, ischemic bowel, pancreatitis, hepatitis, UTI, gastroenteritis, AAA, incarcerated hernia, bowel obstruction, constipation, inflammatory bowel, hepatitis, peptic ulcer disease, splenic infarction, perforated viscus, testicular torsion, this is not meant to be an all-inclusive list EKG interpreted by me (3pts min.). @ -None done X-rays interpreted by me (1pt min.). @ -None done CT interpreted by me (1pt min.). @ -Shows evidence of distal small bowel obstruction U/S interpreted by me (1pt. min.). @ -None done What testing was considered but not performed or refused? (CT, X-rays, U/S, labs)? Why? @ -None What meds were considered but not given or refused? Why? @ -None Did you discuss the management of the patient with other professionals (professionals i.e. , PA, AUTOMOTIVE SOFTWARE ENGINEER, lab, RT, psych nurse, social staff worker, service assistant, teacher, airconditioning drafting officer, shoe caser)? Give summary @ -Dr. Baker discussed case with Dr. Mcclendon who recommended admission to medical team and placement of an NG tube. Was smoking cessation discussed for >3mins.? @ -No Was critical care preformed (if so, how long)? @ -No Were there social determinants of health that impacted care today? How? (Homelessness, low income, unemployed, alcoholism, drug addiction, transportation, low edu. Level, literacy, decrease access to med. care, correction, rehab)? @ -No Was there de-escalation of care discussed even if they declined (Discuss DNR or withdrawal of care, Hospice)? DNR status @ -No What co-morbidities impacted this encounter? (DM, HTN, Smoking, COPD, CAD, Cancer, CVA, ARF, Chemo, Hep., AIDS, mental health diagnosis, sleep apnea, morbid obesity)? @ -None Was patient admitted / discharged? Hospital course, mention meds given and route, prescriptions, significant lab abnormalities, going to OR and other pertinent info. @ -Patient was admitted to the hospital for further evaluation of SBO and hyponatremia (128) NG tube placed, general surgery consulted, admitted to sound physician. Undiagnosed new problem with uncertain prognosis? @ -No Drug Therapy requiring intensive monitoring for toxicity (Heparin, Nitro, Insulin, Cardizem)? @ -No Were any procedures done? @ -No Diagnosis/symptom? @ -SBO and hyponatremia Acute, or Chronic, or Acute on Chronic? @ -Acute Uncomplicated (without systemic symptoms) or Complicated (systemic symptoms)? @ -Default Side effects of treatment? @ -No Exacerbation, Progression, or Severe Exacerbation? @ -No Poses a threat to life or bodily function? How? (Chest pain, USA, GA, pneumonia, PE, COPD, DKA, ARF, appy, cholecystitis, CVA, Diverticulitis, Homicidal, Suicidal, threat to staff... and all critical care pts) @ -Yes, SBO can progress to bowel ischemia and necrosis perforation and sepsis leading to endorgan damage. (Eran Rincon) - Lab Data Lab Results 11/04/24 11/04/24 Range/Units 08:00 08:00 WBC 11.17 H (4.50-10.00) 10*3/uL RBC 5.12 (4.40-5.60) 10*6/uL Hgb 14.6 (13.0-17.0) g/dL Hct 42.6 (39.6-50.0) % MCV 83.2 (80.0-97.0) fL MCH 28.5 (27.0-32.0) pg MCHC 34.3 (32.0-37.0) g/dL Plt Count 330 (140-440) 10*3/uL MPV 9.9 (9.5-12.2) fL Immature Gran % (Auto) 1.3 % Neutrophils % 82.2 % Lymphocytes % 8.3 % Monocytes % 7.7 % Eosinophils % 0.2 % Basophils % 0.3 % Immature Gran # 0.14 H (0.00-0.04) 10*3/uL Neutrophils # 9.19 H (1.80-7.70) 10*3/uL Lymphocytes # 0.93 (0.90-5.00) 10*3/uL Monocytes # 0.86 (0.20-1.00) 10*3/uL Eosinophils # 0.02 L (0.04-0.35) 10*3/uL Basophils # 0.03 (0.00-0.10) 10*3/uL Sodium 128 L (137-145) mmol/L Potassium 4.3 (3.5-5.1) mmol/L Chloride 95 L (98-107) mmol/L Carbon Dioxide 23 (22-30) mmol/L Anion Gap 10 mmol/L BUN 12 (9-20) mg/dL Creatinine 0.58 L (0.66-1.25) mg/dL Est GFR (CKD-EPI)AfAm >90 (>60 ml/min/1.73 sqM) Est GFR (CKD-EPI)NonAf >90 (>60 ml/min/1.73 sqM) Glucose 137 H (74-99) mg/dL Calcium 9.0 (8.4-10.2) mg/dL Total Bilirubin 0.7 (0.2-1.3) mg/dL AST 21 (17-59) U/L ALT 15 (4-49) U/L Alkaline Phosphatase 82 (38-126) U/L Total Protein 6.5 (6.3-8.2) g/dL Albumin 3.7 (3.5-5.0) g/dL Disposition <Martín Baker - Last Filed: 11/04/24 09:48> <Eran Rincon - Last Filed: 11/04/24 14:29> Clinical Impression: Hyponatremia, Small bowel obstruction Disposition: ADMITTED IP TO THIS HOSP
[2024-11-04 08:14] LABS: Basophils # (A) 0.03 10*3/uL (0.00-0.10); Basophils % (A) 0.3 %; Eosinophils # (A) 0.02 10*3/uL (0.04-0.35); Eosinophils % (A) 0.2 %; HCT 42.6 % (39.6-50.0); HGB 14.6 g/dL (13.0-17.0); Lymphocytes # (A) 0.93 10*3/uL (0.90-5.00); Lymphocytes % (A) 8.3 %; MCH 28.5 pg (27.0-32.0); MCHC 34.3 g/dL (32.0-37.0); MCV 83.2 fL (80.0-97.0); Mean Platelet Volume 9.9 fL (9.5-12.2); Monocytes # (A) 0.86 10*3/uL (0.20-1.00); Monocytes % (A) 7.7 %; Neutrophils # (A) 9.19 10*3/uL (1.80-7.70); Neutrophils % (A) 82.2 %; Platelet Count 330 10*3/uL (140-440); RBC 5.12 10*6/uL (4.40-5.60); RDW 11.9 % (11.5-14.5); WBC 11.17 10*3/uL (4.50-10.00)
[2024-11-04 08:36] LABS: ALT 15 U/L (4-49); AST 21 U/L (17-59); African American GFR (CKD) >90 (>60 ml/min/1.73 sqM); Albumin 3.7 g/dL (3.5-5.0); Alkaline Phosphatase 82 U/L (38-126); Anion Gap 10 mmol/L; Blood Urea Nitrogen 12 mg/dL (9-20); Carbon Dioxide 23 mmol/L (22-30); Chloride 95 mmol/L (98-107); Glucose 137 mg/dL (74-99); Non-African American GFR(CKD) >90 (>60 ml/min/1.73 sqM); Potassium 4.3 mmol/L (3.5-5.1); Sodium 128 mmol/L (137-145); Total Bilirubin 0.7 mg/dL (0.2-1.3); Total Protein 6.5 g/dL (6.3-8.2)
--- NOTE | 2024-11-04 09:41 | CT ---
EXAMINATION TYPE: CT abdomen pelvis w con DATE OF EXAM: 11/04/2024 COMPARISON: Prior CT August 03, 2024 CLINICAL INDICATION: Male, 73 years old with history of Recent abd surgery, with possible sbo, vomiti ng, abn bowel habits, recent ruptured appendix with 2 surgies for it, TECHNIQUE: CT scan of the abdomen and pelvis is performed with IV Contrast, patient injected with 100 mL of Isov ue 300., (none if empty) Oral contrast used: without Oral Contrast (none if empty) CT DLP: 1556.7 mGycm, Automated exposure control for dose reduction was used. FINDINGS: LUNG BASES: No significant abnormality is appreciated. LIVER/GB: No significant abnormality is appreciated. PANCREAS: No significant abnormality is seen. SPLEEN: No significant abnormality is seen. ADRENALS: Stable small nonspecific 1.8 cm mass left adrenal gland image 25. KIDNEYS: No significant abnormality is seen. BOWEL: Mildly prominent stomach and duodenal sweep. There is gradual transition into fluid prominent and then fluid dilated small bowel loops throughout the abdomen and upper pelvis. Surgical sutures in the right lower quadrant are present. There is moderate ill-defined fluid and fat stranding at this level. There is severe wall thickening of the terminal ileum. Colon is poorly distended with mild to moderate wall thickening. Transition point is likely at this level. No free air. No well formed fluid collection or abscess identified. PROSTATE/SEMINAL VESICLES: No gross abnormality seen. LYMPH NODES: No greater than 1cm abdominal or pelvic lymph nodes are appreciated. OSSEOUS STRUCTURES: Vacuum disc phenomenon at L3-L4 and L4-L5 levels. Moderate disc space narrowing a t L3-L4 level. OTHER: Persistent atherosclerotic and aneurysmal abdominal aorta measuring up to 4.0 cm AP diameter a xial image 45. Moderate calcified plaque of the infrarenal abdominal aorta extends into iliac branch vessels. IMPRESSION: Findings are consistent with new distal small bowel obstruction with transition point kelle r the terminal ileum at the site of inflammatory change. Advise surgical evaluation. [facility], , 11/04/2024 9:39 AM
[2024-11-04] MEDS ORDERED: NALOXONE 0.4 MG/ML 1 ML VIAL IV PRN (10:59)
[2024-11-04] MEDS ORDERED: DEXTROSE 50% SYRINGE 50 ML IVP PRN ×2 (11:14)
[2024-11-04] MEDS ORDERED: HYDROmorphone 1 MG/ML 1 ML SYRINGE IVP PRN (11:38)
[2024-11-04] MEDS ORDERED: MORPHINE SULFATE 2 MG/ML SYRINGE IVP PRN (11:38)
[2024-11-04] MEDS ORDERED: PROCHLORPERAZINE INJ 10 MG/2 ML VIAL IVP PRN (11:40)
--- NOTE | 2024-11-04 11:41 | P.HPIM ---
History of Present Illness H&P Date: 11/04/24 Patient is a very pleasant 73-year-old male with medical history of hypertension, hyperlipidemia, known infrarenal aneurysm up to 4.1 cm, history of ruptured appendicitis status post laparoscopic and appendectomy on 10/05/2024, who presented to the ER on 11/04/2024 with abdominal pain, nausea, vomiting. Symptoms occurred couple days ago with increasing abdominal distention, nausea, vomiting. No blood in stool or hematemesis reported. Only was able to eat light food such as toast and soup however would vomit right back up. Last BM 11/03, no passing gas. Patient's present at bedside and provides with collateral history. On my evaluation he continues to complain of intermittent abdominal pain but mostly burping bothers him now. On arrival afebrile, heart rate in 90s, BP 130/90, SPO2 97% on room air. Underwent extensive workup. WBC with leukocytosis 11.17, normal stable hemog lobin and platelet count, sodium low 128, normal potassium, chloride 95, bicarb 23, creatinine 0.58, blood glucose 137, normal AST, ALT, alk phos, CT abdomen pelvis performed and showed new distal small bowel obstruction with transition point near the terminal ileum at the site of inflammatory change. Patient being admitted to internal medicine service with surgery on consult. NG tube placed, patient started on maintenance fluid with normal saline. Pertinent positives and negatives as discussed in HPI, a complete review of systems was performed and all other systems are negative. Patient seen and examined at bedside. Vital signs reviewed General: nontoxic, no distress, appears at stated age Derm: warm, dry Head: atraumatic, normocephalic, symmetric Eyes: EOMI, no lid lag, anicteric sclera, pupils equal round reactive to light ENT: Nose and ears atraumatic Neck: No thyromegaly, supple Mouth: no lip lesion, mucus membranes moist Cardiovascular: S1S2 reg, no murmur, no edema Lungs: clear to auscultation bilateral, no rhonchi, no rales, no wheeze, no accessory muscle use Abdominal: Distended, generalized tenderness present, no bowel sounds, Ext: no gross muscle atrophy, muscle strength muscle strength 5 out of 5 in all 4 extremities, no contractures Neuro: CN II-XII grossly intact Psych: Alert, oriented, appropriate affect Assessment/Plan: Small bowel obstruction history of ruptured appendicitis status post laparoscopic and appendectomy on 10/05/2024 Hypochloremic hyponatremia likely due to volume loss with vomiting - Surgery consulted, appreciate recommendations -Continue bowel rest - NG tube ordered -Accu-Cheks every 6 hours and hypoglycemia precautions -Continue normal saline at 100 cc/h -Morphine 2 mg every 4 hours for moderate pain, Dilaudid 1 mg every 3 hours for severe pain -Zofran 4 mg every 8 hours as needed, Compazine 5 mg every 4 hours as needed -Protonix 40 daily20 Hypertension - hold daily medication regimen with amlodipine 10 mg daily. Hyperlipidemia -hold atorvastatin 40 mg daily. Infrarenal fusiform abdominal aortic aneurysm, 4.1 cm - Continue to follow-up outpatient with vascular surgery outpatient for surveillance monitoring and management. - Monitor blood pressures, avoid hypertension. Goal therapeutic range is to maintain systolic pressure less than 140 and diastolic pressure less than 110. hold amlodipine 10 mg daily. The patient is admitted with an anticipated greater than 2 midnight stay as inpatient status for evaluation of SBO. CODE STATUS: Full code DVT prophylaxis: SCD Anticipated discharge date: TBD Anticipated discharge place: TBD A total of 40 minutes was spent on the care of this complex patient more than 50% of the time was spent in counseling and care coordination. Past Medical History Past Medical History: Hyperlipidemia, Hypertension Additional Past Medical History / Comment(s): ruptured appendix 07/06/24 - 07/13/24, 4.1cm AAA is being monitored History of Any Multi-Drug Resistant Organisms: None Reported Past Surgical History: Appendectomy Additional Past Surgical History / Comment(s): laparoscopy w/ abdominal washout 07/06/24 Past Anesthesia/Blood Transfusion Reactions: No Reported Reaction Past Psychological History: No Psychological Hx Reported Smoking Status: Former smoker Past Alcohol Use History: None Reported Past Drug Use History: None Reported - Past Family History Father Additional Family Medical History / Comment(s): bleeding ulcer, age 59 Mother Family Medical History: Cancer Additional Family Medical History / Comment(s): liver cancer, 58 Medications and Allergies Home Medications Medication Instructions Recorded Confirmed Type Acetaminophen Tab [Tylenol] 1,000 mg PO QID PRN 08/04/24 09/30/24 History amLODIPine [Norvasc] 10 mg PO QAM 08/30/24 09/30/24 History Atorvastatin [Lipitor] 40 mg PO DAILY 09/30/24 09/30/24 History HYDROcodone/APAP 5-325MG [Nallen 1 tab PO Q6HR PRN 3 Days #12 tab 10/07/24 Rx 5-325] Allergies Allergy/AdvReac Type Severity Reaction Status Date / Time No Known Allergies Allergy Verified 11/04/24 07:29 Physical Exam Vitals: Vital Signs Temp Pulse Resp BP Pulse Ox 11/04/24 10:44 94 18 147/99 98 11/04/24 07:25 97.9 F 92 19 130/90 97 Intake and Output 11/03/24 11/04/24 11/04/24 22:59 06:59 14:59 Other: Weight 90.718 kg Results CBC & Chem 7: 11/04/24 08:00 11/04/24 08:00 Labs: Abnormal Lab Results - Last 24 Hours (Table) 11/04/24 11/04/24 Range/Units 08:00 08:00 WBC 11.17 H (4.50-10.00) 10*3/uL Immature Gran # 0.14 H (0.00-0.04) 10*3/uL Neutrophils # 9.19 H (1.80-7.70) 10*3/uL Eosinophils # 0.02 L (0.04-0.35) 10*3/uL Sodium 128 L (137-145) mmol/L Chloride 95 L (98-107) mmol/L Creatinine 0.58 L (0.66-1.25) mg/dL Glucose 137 H (74-99) mg/dL
[2024-11-04] MEDS: PANTOPRAZOLE 40 MG/10 ML VIAL IVP SCH (11:58)
[2024-11-04 12:03] LABS: Glucose,Whole Blood 120 mg/dL (70-110)
[2024-11-04] MEDS: SODIUM CHLORIDE 0.9% 1,000 ML IV SCH (12:06)
--- NOTE | 2024-11-04 14:23 | XR ---
EXAMINATION TYPE: XR chest 1V confirm line [facility] DATE OF EXAM: 11/04/2024 1:21 PM COMPARISON: None. CLINICAL INDICATION: Male, 73 years old with history of NG tube placement, pain TECHNIQUE: AP view(s) obtained. FINDINGS: Nasogastric tube transverses the thorax with the tip in the proximal left upper quadrant of the abdom en.r this can be advanced 5 cm for better positioning. Nonspecific bowel gas is present. Lung bases appear clear heart size is normal IMPRESSION: 1. Nasogastric tube tip within the proximal left upper quadrant abdomen, advanced 5 cm for better po sitioning. [facility], , 11/04/2024 2:21 PM
--- NOTE | 2024-11-04 14:27 | P.GSCN ---
History of Present Illness Consult date: 11/04/24 History of present illness: CHIEF COMPLAINT: Abdominal pain HISTORY OF PRESENT ILLNESS: This is a 73-year-old male who presented the hospital with complaints of abdominal pain with nausea and vomiting x 3 days. Patient reports he did have a small bowel movement yesterday but since then no bowel movements and no flatus. He had a CT scan abdomen pelvis that reported small bowel obstruction with transition point in the terminal ileum. He denies any prior history of small bowel obstruction. Abdominal surgery includes a diagnostic laparoscopy with abdominal washout for ruptured appendicitis on July 06, 2024 and then robotic interval appendectomy on October 05, 2024. Patient reports that he had been doing well after surgery but just within the last 3 days starting having abdominal pain. He does feel distended. He does have NG tube in place, awaiting chest x-ray to check placement. PAST MEDICAL HISTORY: See below PAST SURGICAL HISTORY: See below MEDICATIONS: See below ALLERGIES: See below SOCIAL HISTORY: No illicit drug use. REVIEW OF SYSTEMS: CONSTITUTIONAL: Denies fever or chills. HEENT: Denies blurred vision, vision changes, or eye pain. Denies hemoptysis CARDIOVASCULAR: Denies chest pain or pressure. RESPIRATORY: No shortness of breath. GASTROINTESTINAL: See HPI for pertinent findings HEMATOLOGIC: Denies bleeding disorders. GENITOURINARY: Denies any blood in urine or increased urinary frequency. SKIN: Denies pruitis. Denies rash. PHYSICAL EXAM: VITAL SIGNS: Reviewed GENERAL: Well-developed in no acute distress. HEENT: No sclera icterus. Extraocular movements grossly intact. Moist buccal mucosa. Head is atraumatic, normocephalic. No nasal drainage. ABDOMEN: Distended. Tenderness mid abdomen around umbilicus. Robotic incision sites are healed, dry and intact NEUROLOGIC: Alert and oriented. Cranial nerves II through XII grossly intact. LABORATORY DATA: WBC 11.17 Hgb 14.6 platelets 330 Sodium 128 potassium 4.3 creatinine 0.58 Lactic acid 0.8 IMAGING: CT scan abdomen pelvis reports findings are consistent with new distal small bowel obstruction with transition point near the terminal ileum at the site of i nflammatory change. ASSESSMENT: 1. Small bowel obstruction with transition point near the terminal ileum noted on CT scan 2. Ruptured appendix in July with diagnostic lap and abdominal washout and then Robotic interval appendectomy on October 05, 2024 PLAN: - Continue NG tube for decompression - Keep patient n.p.o. - Continue IV fluids - Continue pain management - Continue antiemetics Physician Dock Grader note has been reviewed by physician. Signing provider agrees with the documented findings, assessment, and plan of care. Past Medical History Past Medical History: Hyperlipidemia, Hypertension Additional Past Medical History / Comment(s): ruptured appendix 07/06/24 - 07/13/24, 4.1cm AAA is being monitored History of Any Multi-Drug Resistant Organisms: None Reported Past Surgical History: Appendectomy Additional Past Surgical History / Comment(s): laparoscopy w/ abdominal washout 07/06/24 Past Anesthesia/Blood Transfusion Reactions: No Reported Reaction Past Psychological History: No Psychological Hx Reported Smoking Status: Former smoker Past Alcohol Use History: None Reported Past Drug Use History: None Reported - Past Family History Father Additional Family Medical History / Comment(s): bleeding ulcer, age 59 Mother Family Medical History: Cancer Additional Family Medical History / Comment(s): liver cancer, 58 Medications and Allergies Home Medications Medication Instructions Recorded Confirmed Type amLODIPine [Norvasc] 10 mg PO DAILY 08/30/24 11/04/24 History Atorvastatin [Lipitor] 40 mg PO DAILY 09/30/24 11/04/24 History Allergies Allergy/AdvReac Type Severity Reaction Status Date / Time No Known Allergies Allergy Verified 11/04/24 13:41 Surgical - Exam Vital Signs Temp Pulse Resp BP Pulse Ox 97.9 F 92 19 130/90 97 11/04/24 07:25 11/04/24 07:25 11/04/24 07:25 11/04/24 07:25 11/04/24 07:25 Results - Labs 11/04/24 08:00 11/04/24 08:00 Abnormal Lab Results - Last 24 Hours (Table) 11/04/24 11/04/24 11/04/24 Range/Units 08:00 08:00 11:57 WBC 11.17 H (4.50-10.00) 10*3/uL Immature Gran # 0.14 H (0.00-0.04) 10*3/uL Neutrophils # 9.19 H (1.80-7.70) 10*3/uL Eosinophils # 0.02 L (0.04-0.35) 10*3/uL Sodium 128 L (137-145) mmol/L Chloride 95 L (98-107) mmol/L Creatinine 0.58 L (0.66-1.25) mg/dL Glucose 137 H (74-99) mg/dL POC Glucose (mg/dL) 120 H (70-110) mg/dL Diabetes panel 11/04/24 Range/Units 08:00 Sodium 128 L (137-145) mmol/L Potassium 4.3 (3.5-5.1) mmol/L Chloride 95 L (98-107) mmol/L Carbon Dioxide 23 (22-30) mmol/L BUN 12 (9-20) mg/dL Creatinine 0.58 L (0.66-1.25) mg/dL Glucose 137 H (74-99) mg/dL Calcium 9.0 (8.4-10.2) mg/dL AST 21 (17-59) U/L ALT 15 (4-49) U/L Alkaline Phosphatase 82 (38-126) U/L Total Protein 6.5 (6.3-8.2) g/dL Albumin 3.7 (3.5-5.0) g/dL Calcium panel 11/04/24 Range/Units 08:00 Calcium 9.0 (8.4-10.2) mg/dL Albumin 3.7 (3.5-5.0) g/dL Pituitary panel 11/04/24 Range/Units 08:00 Sodium 128 L (137-145) mmol/L Potassium 4.3 (3.5-5.1) mmol/L Chloride 95 L (98-107) mmol/L Carbon Dioxide 23 (22-30) mmol/L BUN 12 (9-20) mg/dL Creatinine 0.58 L (0.66-1.25) mg/dL Glucose 137 H (74-99) mg/dL Calcium 9.0 (8.4-10.2) mg/dL Adrenal panel 11/04/24 Range/Units 08:00 Sodium 128 L (137-145) mmol/L Potassium 4.3 (3.5-5.1) mmol/L Chloride 95 L (98-107) mmol/L Carbon Dioxide 23 (22-30) mmol/L BUN 12 (9-20) mg/dL Creatinine 0.58 L (0.66-1.25) mg/dL Glucose 137 H (74-99) mg/dL Calcium 9.0 (8.4-10.2) mg/dL Total Bilirubin 0.7 (0.2-1.3) mg/dL AST 21 (17-59) U/L ALT 15 (4-49) U/L Alkaline Phosphatase 82 (38-126) U/L Total Protein 6.5 (6.3-8.2) g/dL Albumin 3.7 (3.5-5.0) g/dL
--- NOTE | 2024-11-04 14:56 | XR ---
EXAMINATION TYPE: XR chest 1V confirm line [facility] DATE OF EXAM: 11/04/2024 2:50 PM COMPARISON: Earlier exam 11/04/2024 CLINICAL INDICATION: Male, 73 years old with history of NG placement, previous abnormal exam TECHNIQUE: XR chest 1V confirm line [facility] view(s) obtained. FINDINGS: The heart size is normal. The pulmonary vasculature is normal. The lungs are clear. Nasogastric tube transverses the thorax with tip in the left upper quadrant of the abdomen in good po sition. IMPRESSION: 1. No acute pulmonary process. 2. Nasogastric tube in good positioning. [facility], , 11/04/2024 2:53 PM
[2024-11-04 18:26] LABS: Glucose,Whole Blood 103 mg/dL (70-110)
[2024-11-04 23:14] VITALS: RESP 16
[2024-11-05 00:16] LABS: Glucose,Whole Blood 97 mg/dL (70-110)
[2024-11-05 06:02] LABS: Glucose,Whole Blood 94 mg/dL (70-110)
[2024-11-05 08:17] LABS: Basophils # (A) 0.05 X 10*3/uL (0.00-0.10); Basophils % (A) 0.6 %; Eosinophils # (A) 0.09 X 10*3/uL (0.04-0.35); Eosinophils % (A) 1.1 %; HGB 13.9 g/dL (13.0-17.0); Lymphocytes # (A) 1.61 X 10*3/uL (0.90-5.00); Lymphocytes % (A) 19.5 %; MCH 28.3 pg (27.0-32.0); MCHC 33.1 g/dL (32.0-37.0); MCV 85.5 FL (80.0-97.0); Mean Platelet Volume 10.3 FL (9.5-12.2); Monocytes # (A) 0.92 X 10*3/uL (0.20-1.00); Monocytes % (A) 11.1 %; NRBC Per 100 WBC 0 X 10*3/uL (0.00-0.01); Neutrophils # (A) 5.43 X 10*3/uL (1.80-7.70); Neutrophils % (A) 65.8 %; Platelet Count 343 X 10*3/uL (140-440); RBC 4.91 X 10*6/uL (4.40-5.60); RDW 12.2 % (11.5-14.5); WBC 8.26 X 10*3/uL (4.50-10.00)
[2024-11-05 08:30] LABS: ALT 16 U/L (10-49); AST 19 U/L (14-35); Albumin 3.7 g/dL (3.8-4.9); Albumin/Globulin Ratio 1.54 Ratio (1.60-3.17); Alkaline Phosphatase 71 U/L (41-126); Blood Urea Nitrogen 11.9 mg/dL (9.0-27.0); Calcium 8.6 mg/dL (8.7-10.3); Chloride 100 mmol/L (96-109); Globulin 2.4 g/dL (1.6-3.3); Glucose 95 mg/dL (70-110); Potassium 4.4 mmol/L (3.5-5.5); Sodium 133 mmol/L (135-145); Total Bilirubin 0.5 mg/dL (0.3-1.2); Total Protein 6.1 g/dL (6.2-8.2)
[2024-11-05 13:33] LABS: Glucose,Whole Blood 92 mg/dL (70-110)
--- NOTE | 2024-11-05 14:05 | P.PN ---
Subjective Progress Note Date: 11/05/24 SURGICAL PROGRESS NOTE CHIEF COMPLAINT: Partial small bowel obstruction HISTORY OF PRESENT ILLNESS: Patient had a liquidy moderate-sized bowel movement today. NG tube with 100 mL out put last night and about 100 this morning. Bilious in color. Patient still having some abdominal distention and abdominal tenderness. Afebrile. WBC 11.17 down to 8.26 Hgb 13.9 PHYSICAL EXAM: VITAL SIGNS: Reviewed. GENERAL: Well-developed in no acute distress. HEENT: No sclera icterus. Extraocular movements grossly intact. Moist buccal mucosa. Head is atraumatic, normocephalic. ABDOMEN: Soft. Mildly distended. Tenderness palpation mid abdomen NEUROLOGIC: Alert and oriented. Cranial nerves II through XII grossly intact. ASSESSMENT: 1. Partial small bowel obstruction 2. Ruptured appendix in July with diagnostic lap and abdominal washout and then Robotic interval appendectomy on October 05, 2024 PLAN: - Small bowel follow-through ordered for diagnostic and therapeutic management of PSBO - Continue NG tube for decompression - Keep patient n.p.o. - Continue IV fluids Physician Fancy Stitcher note has been reviewed by physician. Signing provider agrees with the documented findings, assessment, and plan of care. Attestation Patient seen and examined at bedside. States he had a liquid stool, moderate- sized today. Nasogastric tube in place with bilious output. Concern for partial small bowel obstruction. Small bowel follow-through ordered for today. Continue nasogastric tube for now. Keep NPO. Case discussed in depth with patient and patient's at bedside. Marti Hanley DO Objective - Vital Signs Vital signs: Vital Signs Temp 97.8 F 11/05/24 13:29 Pulse 88 11/05/24 13:29 Resp 16 11/05/24 13:29 BP 156/82 11/05/24 13:29 Pulse Ox 99 11/05/24 13:29 FiO2 Intake & Output 11/04/24 11/05/24 11/05/24 18:59 06:59 18:59 Output Total 100 Balance -100 Weight 90.718 kg 90.718 kg Output: Gastric Drainage 100 Other: Voiding Method Toilet Urinal # Voids 2 - Labs CBC & Chem 7: 11/05/24 05:19 11/05/24 05:19 Labs: Abnormal Lab Results - Last 24 Hours (Table) 11/05/24 11/05/24 11/05/24 Range/Units 05:19 05:19 05:19 Immature Gran # 0.16 H (0.00-0.04) X 10*3/uL Sodium 133 L (135-145) mmol/L Carbon Dioxide 21.0 L (21.6-31.8) mmol/L Hemoglobin A1c 6.1 H (<=6.0) % Calcium 8.6 L (8.7-10.3) mg/dL Total Protein 6.1 L (6.2-8.2) g/dL Albumin 3.7 L (3.8-4.9) g/dL Albumin/Globulin Ratio 1.54 L (1.60-3.17) Ratio
--- NOTE | 2024-11-05 15:42 | P.PN ---
Subjective Progress Note Date: 11/05/24 Hospital Course: Patient is a very pleasant 73-year-old male with medical history of hypertensi on, hyperlipidemia, known infrarenal aneurysm up to 4.1 cm, history of ruptured appendicitis status post laparoscopic and appendectomy on 10/05/2024, who presented to the ER on 11/04/2024 with abdominal pain, nausea, vomiting. Symptoms occurred couple days ago with increasing abdominal distention, nausea, vomiting. No blood in stool or hematemesis reported. Only was able to eat light food such as toast and soup however would vomit right back up. Last BM 11/03, no passing gas. Patient's present at bedside and provides with collateral history. On my evaluation he continues to complain of intermittent abdominal pain but mostly burping bothers him now. On arrival afebrile, heart rate in 90s, BP 130/90, SPO2 97% on room air. Underwent extensive workup. WBC with leukocytosis 11.17, normal stable hemoglobin and platelet count, sodium low 128, normal potassium, chloride 95, bicarb 23, creatinine 0.58, blood glucose 137, normal AST, ALT, alk phos, CT abdomen pelvis performed and showed new distal small bowel obstruction with transition point near the terminal ileum at the site of inflammatory change. Patient being admitted to internal medicine service with surgery on consult. NG tube placed, patient started on maintenance fluid with normal saline. 11/05: Patient was seen and examined at bedside, along with surgical team and RN. NG output 100 cc this a.m., patient said that he had 1 watery bowel movement this morning, passes gas. Small bowel follow-through ordered, continue NG, n.p.o., IV fluids. Patient's at bedside, discussed, discussed later with social work. Pertinent positives and negatives as discussed above, a complete review of systems was performed and all other systems are negative. Vitals Signs Reviewed. General: nontoxic, no distress, appears at stated age Derm: warm, dry Head: atraumatic, normocephalic, symmetric Eyes: EOMI, no lid lag, anicteric sclera, pupils equal round reactive to light ENT: Nose and ears atraumatic Neck: No thyromegaly, supple Mouth: no lip lesion, mucus membranes moist Cardiovascular: S1S2 reg, no murmur, no edema Lungs: clear to auscultation bilateral, no rhonchi, no rales, no wheeze, no accessory muscle use Abdominal: Distended, generalized tenderness present, very sluggish bowel sounds Ext: no gross muscle atrophy, muscle strength muscle strength 5 out of 5 in all 4 extremities, no contractures Neuro: CN II-XII grossly intact Psych: Alert, oriented, appropriate affect Assessment/Plan: Small bowel obstruction history of ruptured appendicitis status post laparoscopic and appendectomy on 10/05/2024 Hypochloremic hyponatremia likely due to volume loss with vomiting - Surgery consulted, appreciate recommendations -Continue bowel rest - NG tube in place, continue -Accu-Cheks every 6 hours and hypoglycemia precautions -Continue normal saline at 100 cc/h -Morphine 2 mg every 4 hours for moderate pain, Dilaudid 1 mg every 3 hours for severe pain -Zofran 4 mg every 8 hours as needed, Compazine 5 mg every 4 hours as needed -Protonix 40 daily20 -Small bowel follow-through ordered by surgery and pending Hypertension - hold daily medication regimen with amlodipine 10 mg daily. Hyperlipidemia -hold atorvastatin 40 mg daily. Infrarenal fusiform abdominal aortic aneurysm, 4.1 cm - Continue to follow-up outpatient with vascular surgery outpatient for surveillance monitoring and management. - Monitor blood pressures, avoid hypertension. Goal therapeutic range is to maintain systolic pressure less than 140 and diastolic pressure less than 110. hold amlodipine 10 mg daily. CODE STATUS: Full code DVT prophylaxis: SCD Anticipated discharge date: TBD Anticipated discharge place: TBD Objective - Vital Signs Vital signs: Vital Signs Temp 97.8 F 11/05/24 13:29 Pulse 88 11/05/24 13:29 Resp 16 11/05/24 13:29 BP 156/82 11/05/24 13:29 Pulse Ox 99 11/05/24 13:29 FiO2 Intake & Output 11/04/24 11/05/24 11/05/24 18:59 06:59 18:59 Output Total 100 Balance -100 Weight 90.718 kg 90.718 kg Output: Gastric Drainage 100 Other: Voiding Method Toilet Urinal # Voids 2 - Labs CBC & Chem 7: 11/05/24 05:19 11/05/24 05:19 Labs: Abnormal Lab Results - Last 24 Hours (Table) 11/05/24 11/05/24 11/05/24 Range/Units 05:19 05:19 05:19 Immature Gran # 0.16 H (0.00-0.04) X 10*3/uL Sodium 133 L (135-145) mmol/L Carbon Dioxide 21.0 L (21.6-31.8) mmol/L Hemoglobin A1c 6.1 H (<=6.0) % Calcium 8.6 L (8.7-10.3) mg/dL Total Protein 6.1 L (6.2-8.2) g/dL Albumin 3.7 L (3.8-4.9) g/dL Albumin/Globulin Ratio 1.54 L (1.60-3.17) Ratio
[2024-11-05] MEDS: ONDANSETRON 4 MG/2 ML VIAL IVP PRN (15:46)
[2024-11-05 17:19] LABS: Glucose,Whole Blood 98 mg/dL (70-110)
[2024-11-06 00:12] LABS: Glucose,Whole Blood 100 mg/dL (70-110)
[2024-11-06 05:49] LABS: Glucose,Whole Blood 116 mg/dL (70-110)
[2024-11-06 07:34] LABS: Basophils # (A) 0.04 10*3/uL (0.00-0.10); Basophils % (A) 0.5 %; Eosinophils # (A) 0.03 10*3/uL (0.04-0.35); Eosinophils % (A) 0.4 %; HCT 39.5 % (39.6-50.0); HGB 13.1 g/dL (13.0-17.0); Lymphocytes # (A) 1.16 10*3/uL (0.90-5.00); Lymphocytes % (A) 15.4 %; MCH 28.7 pg (27.0-32.0); MCHC 33.2 g/dL (32.0-37.0); MCV 86.4 fL (80.0-97.0); Mean Platelet Volume 9.6 fL (9.5-12.2); Monocytes # (A) 0.77 10*3/uL (0.20-1.00); Monocytes % (A) 10.3 %; Neutrophils # (A) 5.33 10*3/uL (1.80-7.70); Platelet Count 326 10*3/uL (140-440); RBC 4.57 10*6/uL (4.40-5.60); RDW 12.5 % (11.5-14.5); WBC 7.51 10*3/uL (4.50-10.00)
[2024-11-06 07:47] LABS: ALT 24 U/L (4-49); AST 21 U/L (17-59); African American GFR (CKD) >90 (>60 ml/min/1.73 sqM); Albumin 3.6 g/dL (3.5-5.0); Albumin/Globulin Ratio 1.4; Alkaline Phosphatase 74 U/L (38-126); Anion Gap 10 mmol/L; Blood Urea Nitrogen 18 mg/dL (9-20); Calcium 8.8 mg/dL (8.4-10.2); Carbon Dioxide 22 mmol/L (22-30); Chloride 108 mmol/L (98-107); Globulin 2.6 g/dL; Glucose 102 mg/dL (74-99); Non-African American GFR(CKD) >90 (>60 ml/min/1.73 sqM); Potassium 3.9 mmol/L (3.5-5.1); Sodium 140 mmol/L (137-145); Total Bilirubin 0.4 mg/dL (0.2-1.3); Total Protein 6.2 g/dL (6.3-8.2)
[2024-11-06 07:56] VITALS: BP 145/85; PULSE 83; TEMP 97.8
--- NOTE | 2024-11-06 09:07 | FL ---
EXAMINATION TYPE: FL small bowel follow through DATE OF EXAM: 11/05/2024 9:08 PM COMPARISON: CT abdomen pelvis most recent from 11/24. CLINICAL INDICATION:Male, 73 years old with history of abdominal distention, sbo; TECHNIQUE: The procedure was explained and patient history elicited. All patient questions were ans wered prior to start of procedure. A interlacer radiograph of the abdomen was also reviewed. The patient was asked to ingest liquid Gastrografin and incremental frontal abdominal radiographs were then taken until contrast was visualized in the cecum. FINDINGS: The interlacer abdominal radiograph demonstrates a normal bowel gas pattern with dilated loops of small th roughout the abdomen. There is no evidence of organomegaly or pneumoperitoneum. No abnormal calcifica tions. The visualized osseous structures are intact. Contrast is seen extending from the duodenojejunal junction into the cecum after 8 hours, which is lo nger than expected. The small bowel follows normal distribution and contour without any evidence of extraluminal or intraluminal irregularity. Mild distention of small bowel throughout the abdomen The re is no displacement of bowel loops or extraluminal extravasation of contrast material. Small bowel mucosal folds are felt to be within normal limits. IMPRESSION: Delayed emptying into the colon which required up to 8 hours. Correlate for ileus versus partial smal l bowel obstruction. [facility], , 11/06/2024 9:05 AM
--- NOTE | 2024-11-06 09:07 | P.PN ---
Subjective Progress Note Date: 11/06/24 Hospital Course: Patient is a very pleasant 73-year-old male with medical history of hypertensi on, hyperlipidemia, known infrarenal aneurysm up to 4.1 cm, history of ruptured appendicitis status post laparoscopic and appendectomy on 10/05/2024, who presented to the ER on 11/04/2024 with abdominal pain, nausea, vomiting. Symptoms occurred couple days ago with increasing abdominal distention, nausea, vomiting. No blood in stool or hematemesis reported. Only was able to eat light food such as toast and soup however would vomit right back up. Last BM 11/03, no passing gas. Patient's present at bedside and provides with collateral history. On my evaluation he continues to complain of intermittent abdominal pain but mostly burping bothers him now. On arrival afebrile, heart rate in 90s, BP 130/90, SPO2 97% on room air. Underwent extensive workup. WBC with leukocytosis 11.17, normal stable hemoglobin and platelet count, sodium low 128, normal potassium, chloride 95, bicarb 23, creatinine 0.58, blood glucose 137, normal AST, ALT, alk phos, CT abdomen pelvis performed and showed new distal small bowel obstruction with transition point near the terminal ileum at the site of inflammatory change. Patient being admitted to internal medicine service with surgery on consult. NG tube placed, patient started on maintenance fluid with normal saline. 11/05: Patient was seen and examined at bedside, along with surgical team and RN. NG output 100 cc this a.m., patient said that he had 1 watery bowel movement this morning, passes gas. Small bowel follow-through ordered, continue NG, n.p.o., IV fluids. Patient's at bedside, discussed, discussed later with social work. 11/06: No acute events overnight, seen and examined at bedside, patient is walking independently, has had multiple watery bowel movements, bowel sounds active. Small bowel proved pending, continue current management, surgery to guide NG discontinuation and diet advancement Pertinent positives and negatives as discussed above, a complete review of systems was performed and all other systems are negative. Vitals Signs Reviewed. General: nontoxic, no distress, appears at stated age Derm: warm, dry Head: atraumatic, normocephalic, symmetric Eyes: EOMI, no lid lag, anicteric sclera, pupils equal round reactive to light ENT: Nose and ears atraumatic Neck: No thyromegaly, supple Mouth: no lip lesion, mucus membranes moist Cardiovascular: S1S2 reg, no murmur, no edema Lungs: clear to auscultation bilateral, no rhonchi, no rales, no wheeze, no accessory muscle use Abdominal: Soft, nontender, active bowel sounds Ext: no gross muscle atrophy, muscle strength muscle strength 5 out of 5 in all 4 extremities, no contractures Neuro: CN II-XII grossly intact Psych: Alert, oriented, appropriate affect Assessment/Plan: Small bowel obstruction, resolving history of ruptured appendicitis status post laparoscopic and appendectomy on 10/05/2024 Hypochloremic hyponatremia likely due to volume loss with vomiting - Surgery consulted, appreciate recommendations -Continue bowel rest - NG tube in place, continue -Accu-Cheks every 6 hours and hypoglycemia precautions -Continue normal saline at 100 cc/h -Morphine 2 mg every 4 hours for moderate pain, Dilaudid 1 mg every 3 hours for severe pain -Zofran 4 mg every 8 hours as needed, Compazine 5 mg every 4 hours as needed -Protonix 40 daily20 -Small bowel follow-through ordered by surgery and pending Hypertension - hold daily medication regimen with amlodipine 10 mg daily. Hyperlipidemia -hold atorvastatin 40 mg daily. 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 - Monitor blood pressures, avoid hypertension. Goal therapeutic range is to maintain systolic pressure less than 140 and diastolic pressure less than 110. hold amlodipine 10 mg daily. CODE STATUS: Full code DVT prophylaxis: SCD Anticipated discharge date: TBD Anticipated discharge place: TBD Objective - Vital Signs Vital signs: Vital Signs Temp 97.8 F 11/06/24 07:21 Pulse 83 11/06/24 07:21 Resp 16 11/06/24 07:21 BP 145/85 11/06/24 07:21 Pulse Ox 96 11/06/24 07:21 FiO2 Intake & Output 11/05/24 11/06/24 11/06/24 18:59 06:59 18:59 Intake Total 0 Output Total 250 850 Balance -250 -850 Intake: Oral 0 Output: Gastric Drainage 250 850 Other: Voiding Method Toilet Urinal # Voids 1 3 # Bowel Movements 1 0 - Labs CBC & Chem 7: 11/06/24 07:11 11/06/24 07:11 Labs: Abnormal Lab Results - Last 24 Hours (Table) 11/06/24 11/06/24 11/06/24 Range/Units 05:46 07:11 07:11 Hct 39.5 L (39.6-50.0) % Immature Gran # 0.18 H (0.00-0.04) 10*3/uL Eosinophils # 0.03 L (0.04-0.35) 10*3/uL Chloride 108 H (98-107) mmol/L Creatinine 0.64 L (0.66-1.25) mg/dL Glucose 102 H (74-99) mg/dL POC Glucose (mg/dL) 116 H (70-110) mg/dL Total Protein 6.2 L (6.3-8.2) g/dL
--- NOTE | 2024-11-06 11:50 | P.DS ---
Providers Date of admission: 11/04/24 11:02 Attending physician: Nathaniel Jones Consults: 11/04/24 11:00 Consult Physician Routine Consulting Provider: Estiven Mcclendon Consult Reason/Comments: SBO Do you want consulting provider notified?: Already Contacted Primary care physician: Hira Larios MD Hospital Course: Discharge Diagnosis: partial SBO, resolved history of ruptured appendicitis status post laparoscopic and appendectomy on 10/05/2024 Hypochloremic hyponatremia likely due to volume loss with vomiting infrarenal fusiform abdominal aortic aneurysm, 4.1 cm HTN HLD Hospital Course: Patient is a very pleasant 73-year-old male with medical history of hypertension, hyperlipidemia, known infrarenal aneurysm up to 4.1 cm, history of ruptured appendicitis status post laparoscopic and appendectomy on 10/05/2024, who presented to the ER on 11/04/2024 with abdominal pain, nausea, vomiting. Symptoms occurred couple days ago with increasing abdominal distention, nausea, vomiting. No blood in stool or hematemesis reported. Only was able to eat light food such as toast and soup however would vomit right back up. Last BM 11/03, no passing gas. Patient's present at bedside and provides with collateral history. On my evaluation he continues to complain of intermittent abdominal pain but mostly burping bothers him now. On arrival afebrile, heart rate in 90s, BP 130/90, SPO2 97% on room air. Underwent extensive workup. WBC with leukocytosis 11.17, normal stable hemoglobin and platelet count, sodium low 128, normal potassium, chloride 95, bicarb 23, creatinine 0.58, blood glucose 137, normal AST, ALT, alk phos, CT abdomen pelvis performed and showed new distal small bowel obstruction with transition point near the terminal ileum at the site of inflammatory change. Patient being admitted to internal medicine service with surgery on consult. NG tube placed, patient started on maintenance fluid with normal saline. Patient started having bowel movements on 11/05, continued to have watery bowel movements on 11/06, abdomen no longer distended, bowel sounds present. Bowel follow-through ordered by surgery showed delayed emptying, correlate for ileus versus partial small bowel obstruction. NG tube was removed, patient was cleared for discharge by surgical team. Patient seen and examined at bedside.[] Vital signs reviewed and stable. General: [nontoxic], [no distress], [appears at stated age] Derm: [warm], [dry] Head: [atraumatic], [normocephalic], [symmetric] Eyes: [EOMI], [no lid lag], [anicteric sclera] Mouth: [no lip lesion], [mucus membranes moist] Cardiovascular: [S1S2 reg], [no murmur] Lungs: [CTA bilateral], [no rhonchi, no rales] , [no accessory muscle use] Abdominal: [soft], [ nontender to palpation], [no guarding], [no appreciable organomegaly] Ext: [no gross muscle atrophy], [no edema], [no contractures] Neuro: [ CN II-XI grossly intact], [no focal neuro deficits] Psych: [Alert], [oriented], [appropriate affect] A total of 40 minutes of time were spent preparing this complex discharge summary. Patient was discharged on [11/06/2024 Plan - Discharge Summary Discharge Rx Participant: No New Discharge Prescriptions: Continue amLODIPine [Norvasc] 10 mg PO DAILY Atorvastatin [Lipitor] 40 mg PO DAILY Discharge Medication List amLODIPine [Norvasc] 10 mg PO DAILY 08/30/24 [History] Atorvastatin [Lipitor] 40 mg PO DAILY 09/30/24 [History] Follow up Appointment(s)/Referral(s): Hiar Larios MD [Primary Care Provider] - 1-2 days Patient Instructions/Handouts: Bowel Obstruction (DC) Activity/Diet/Wound Care/Special Instructions: Follow up with your PCP Discharge Disposition: HOME SELF-CARE
--- NOTE | 2024-11-06 12:12 | P.PN ---
Subjective Progress Note Date: 11/06/24 Patient seen and examined at bedside. Did undergo small bowel follow-through. Has had multiple bowel movements since and is feeling much better. Objective - Vital Signs Vital signs: Vital Signs Temp 97.8 F 11/06/24 07:21 Pulse 83 11/06/24 08:00 Resp 16 11/06/24 08:00 BP 145/85 11/06/24 07:21 Pulse Ox 96 11/06/24 07:21 FiO2 Intake & Output 11/05/24 11/06/24 11/06/24 18:59 06:59 18:59 Intake Total 0 Output Total 250 850 550 Balance -250 -850 -550 Intake: Oral 0 Output: Gastric Drainage 250 850 550 Other: Voiding Method Toilet Toilet Urinal Urinal # Voids 1 3 # Bowel Movements 1 0 - Constitutional General appearance: Present: cooperative - Respiratory Details: No difficulty with respiration - Gastrointestinal Gastrointestinal Comment(s): Soft, nontender, nondistended, no rebound or guarding - Labs CBC & Chem 7: 11/06/24 07:11 11/06/24 07:11 Labs: Abnormal Lab Results - Last 24 Hours (Table) 11/06/24 11/06/24 11/06/24 Range/Units 05:46 07:11 07:11 Hct 39.5 L (39.6-50.0) % Immature Gran # 0.18 H (0.00-0.04) 10*3/uL Eosinophils # 0.03 L (0.04-0.35) 10*3/uL Chloride 108 H (98-107) mmol/L Creatinine 0.64 L (0.66-1.25) mg/dL Glucose 102 H (74-99) mg/dL POC Glucose (mg/dL) 116 H (70-110) mg/dL Total Protein 6.2 L (6.3-8.2) g/dL Assessment and Plan Plan: 73-year-old male with concern for small bowel obstruction. This appears to have resolved. Small bowel follow-through performed with slow transit into the colon, however patient has had multiple bowel movements and states he is feeling much better. I did discuss his case in depth with him. Based on his history of perforated appendicitis and interval appendectomy, he may have some stricturing of the distal terminal ileum and may have recurrent episodes of bowel obstru ction or partial bowel obstruction. Recommendation was made for likely ileocecectomy. As his current obstruction has resolved, this can be planned as an outpatient. He was recommended full liquid diet with protein supplementation. Patient to follow-up in the surgery clinic this week for further discussion.
== END 2024-11-06 12:35 | disposition home or self-care (01) | DRG 389 ==
LOC: EC 07:22 → 4SSUR 11:02 → 5NMEDONC 22:20
PROVIDERS: ADMIT Student in an Organized Health Care Education/Training Program; ATTEND Student in an Organized Health Care Education/Training Program
PROC: 0D9670Z Drainage of Stomach with Drainage Device, Via Natural or Artificial Opening (ICD-10-PCS; principal; 2024-11-04)
DX: K56.600 Partial intestinal obstruction, unspecified as to cause (principal); E87.1 Hypo-osmolality and hyponatremia; I10 Essential (primary) hypertension; I71.43 Infrarenal abdominal aortic aneurysm, without rupture; E78.5 Hyperlipidemia, unspecified; E87.8 Other disorders of electrolyte and fluid balance, not elsewhere classified; Z79.899 Other long term (current) drug therapy; Z87.891 Personal history of nicotine dependence
CPT/HCPCS: 36415; 74177; 74250; 80053; 83036; 83605; 85025; 96361; 96374; 96375; 99285

== ENCOUNTER → 2024-11-15 | Outpatient (CLI) | payer MEDICARE ==
[2024-11-15 09:08] LABS: Partial Thromboplastin Time 22.1 sec (22.0-30.0); Prothrombin Time 11.2 sec (10.0-12.5)
[2024-11-15 16:47] LABS: BUN/Creat Ratio 8.57 Ratio (12.00-20.00); Chloride 104 mmol/L (96-109); Glucose 110 mg/dL (70-110); Potassium 4.2 mmol/L (3.5-5.5); Sodium 138 mmol/L (135-145)
[2024-11-15 16:48] LABS: ALT 21 U/L (10-49); AST 17 U/L (14-35); Albumin 4.2 g/dL (3.8-4.9); Albumin/Globulin Ratio 1.91 Ratio (1.60-3.17); Alkaline Phosphatase 76 U/L (41-126); Calcium 8.9 mg/dL (8.7-10.3); Carbon Dioxide 22.3 mmol/L (21.6-31.8); Globulin 2.2 g/dL (1.6-3.3); Total Bilirubin <0.2 mg/dL (0.3-1.2); Total Protein 6.4 g/dL (6.2-8.2)
[2024-11-15 18:52] LABS: Appearance,Urine Clear (Clear); Bilirubin,Urine Negative (Negative); Blood,Urine Negative (Negative); Color,Urine Yellow (Yellow); Ketones,Urine Negative (Negative); Nitrite,Urine Negative (Negative); Specific Gravity,Urine 1.009 (1.001-1.030); Urobilinogen,Urine 0.2 E.U./DL
== END | disposition home or self-care (01) ==
LOC: LABPAT 08:24
PROVIDERS: ATTEND Surgery
DX: Z01.818 Encounter for other preprocedural examination (principal)
CPT/HCPCS: 80053; 81003; 84702; 85610; 85730; 86850; 86900; 86901; 93005

== ENCOUNTER 2024-11-19 07:04 | Inpatient (IN) | payer MEDICARE ==
[2024-11-19] MEDS ORDERED: MIDAZOLAM 2 MG/2 ML VIAL IV PRN (07:12)
[2024-11-19] MEDS ORDERED: HYDROmorphone 0.5 MG/0.5 ML SYRINGE IVP PRN (07:12)
[2024-11-19] MEDS: IV FLUID CONTINUATION 1,000 ML IV ONE ×2 (07:21→13:00)
[2024-11-19] MEDS: ONDANSETRON 4 MG/2 ML VIAL IVP ONE (08:01)
[2024-11-19] MEDS: DEXAMETHASONE SOD PHOSPHATE 4 MG/ML 1 ML VIAL IV ONE (08:01)
[2024-11-19] MEDS: LACTATED RINGERS 1,000 ML IV SCH ×2 (08:01→17:02)
[2024-11-19] MEDS: HEPARIN SODIUM,PORCINE 5,000 UNIT/ML 1 ML VIAL SQ PRN (08:52)
[2024-11-19] MEDS ORDERED: NEOSTIGMINE 1 MG/ML 10 ML VIAL ONE (09:17)
[2024-11-19] MEDS ORDERED: SUCCINYLCHOLINE CHLORIDE 200 MG/10 ML VIAL IV ONE (09:17)
[2024-11-19] MEDS ORDERED: LIDOCAINE 1% INJ 10MG/ML (20 ML MDV) ONE (09:17)
[2024-11-19] MEDS ORDERED: fentaNYL (PF) 50 MCG/ML 2 ML AMP ONE (09:17)
[2024-11-19] MEDS ORDERED: MIDAZOLAM 2 MG/2 ML VIAL ONE (09:17)
[2024-11-19] MEDS ORDERED: ROCURONIUM 10 MG/ML (5 ML VIAL) IV ONE (09:17)
[2024-11-19] MEDS ORDERED: HYDROmorphone (PF) 1 MG/ML ONE (09:17)
[2024-11-19] MEDS ORDERED: PROPOFOL 10 MG/ML 20 ML VIAL IV ONE (09:17)
[2024-11-19] MEDS ORDERED: GLYCOPYRROLATE 0.2 MG/ML 2 ML VIAL ONE (09:17)
[2024-11-19] MEDS: ceFAZolin 2 GM in DEXTROSE 5% IN WATER 50 ML IVPB PRN (09:21)
[2024-11-19] MEDS: metroNIDAZOLE-NS PMX 500 MG in SALINE 1 100ML.BAG IVPB PRN (09:30)
[2024-11-19] MEDS: LIDOCAINE 1%-EPI 1:100,000 20 ML VIAL SQ ONE (10:00)
[2024-11-19] MEDS: LACTATED RINGERS 1,000 ML IV ONE (10:18)
[2024-11-19] MEDS ORDERED: ONDANSETRON 4 MG/2 ML VIAL IVP PRN (12:14)
[2024-11-19] MEDS ORDERED: HYDROmorphone 1 MG/ML 1 ML SYRINGE IVP PRN (12:14)
--- NOTE | 2024-11-19 12:21 | P.PN ---
Progress Note - Text Progress Note Date: 11/19/24 Patient underwent for Robotic Right Hemicolectomy for recurrent small bowel obstructions secondary to perforated appendicitis with associated phlegmon. Formal operative note to follow. Estiven Mcclendon DO [facility] [phone]
[2024-11-19 15:22] LABS: ALT 21 U/L (4-49); AST 23 U/L (17-59); African American GFR (CKD) >90 (>60 ml/min/1.73 sqM); Albumin/Globulin Ratio 1.6; Alkaline Phosphatase 75 U/L (38-126); Anion Gap 13 mmol/L; Blood Urea Nitrogen 9 mg/dL (9-20); Calcium 9.4 mg/dL (8.4-10.2); Carbon Dioxide 19 mmol/L (22-30); Chloride 105 mmol/L (98-107); Globulin 2.5 g/dL; Glucose 173 mg/dL (74-99); Magnesium 1.7 mg/dL (1.6-2.3); Non-African American GFR(CKD) >90 (>60 ml/min/1.73 sqM); Potassium 4.2 mmol/L (3.5-5.1); Sodium 137 mmol/L (137-145); Total Bilirubin 0.3 mg/dL (0.2-1.3); Total Protein 6.5 g/dL (6.3-8.2)
--- NOTE | 2024-11-19 16:37 | P.CONS ---
History of Present Illness - Reason for Consult Consult date: 11/19/24 Medical management - History of Present Illness History of present illness; Patient is a 73-year-old male with hyperlipidemia, hypertension who presents for elective right hemicolectomy. Patient has history of recurrent small bowel obstruction secondary to perforated appendicitis with associated phlegmon. He had a perforated appendicitis July 2024 and was admitted to hospital for appendectomy. He later had phlegmon and bowel obstruction. Patient then followed up with general surgery outpatient and had planned surgery today. Patient is now postop with no known surgical complications. Patient is sitting up in bed resting with no complaints of pain. Patient reports absence of chest pain, palpitations, shortness of breath. REVIEW OF SYSTEMS: Pertinent positives and negatives noted in HPI. All other symptoms are negative. PHYSICAL EXAMINATION: Vitals reviewed GENERAL: Resting comfortably in bed. Sleepy. NECK: No tracheal deviation, full range of motion. CARDIOVASCULAR: S1 and S2 present. No murmurs, rubs, or gallops. PULMONARY: Chest is clear to auscultation, no wheezing, rhonchi, or crackles. ABDOMEN: Soft, nontender, nondistended. No palpable organomegaly. EXTREMITIES: No apparent cyanosis, clubbing. No pedal edema. NEUROLOGICAL: Gross neurological examination with no apparent focal deficits. Initial lab workup revealed bicarb 19, glucose 173 No EKG noted No imaging today Assessment and plan: Patient is a 73-year-old male with hyperlipidemia, hypertension who presents for right hemicolectomy. #Essential hypertension -resume home amlodipine 10 mg daily # Hyperlipidemia - resume home atorvastatin 40 mg daily # Robotic right hemicolectomy # History of recurrent small bowel obstruction secondary to perforated appendicitis with associated phlegmon Ceftriaxone 2 mg daily, metronidazole 5 mg IV every 8 hours -Pain management and DVT prophylaxis per primary surgical team F: IV LR E: Replete as needed N: N.p.o. Code status: Full code Follow up CBC and CMP in AM Juan Manuel Torrez MD Internal Medicine Resident, PGY1 Dictation was produced using [employer]OTE[employer] dictation software. Please excuse any grammatical, word or spelling errors. Thank you for allowing us to participate in the care of this pleasant patient. Do not hesitate to contact us with questions. Someone can be reached from the [facility] hospitalist group all hours of the day at [phone] or via perfect serve. I have seen and evaluated the patient today. Discussed with the resident and agree with the residents finding and plan as documented in the resident's note. Changes highlighted in blue font. Past Medical History Past Medical History: Hyperlipidemia, Hypertension Additional Past Medical History / Comment(s): 4.1cm AAA - being monitored. History of Any Multi-Drug Resistant Organisms: None Reported Past Surgical History: Appendectomy Additional Past Surgical History / Comment(s): Laparoscopy w/ abdominal washout 07/06/24, colonoscopy X2, 2nd surgery to remove remainder of appendix. Past Anesthesia/Blood Transfusion Reactions: No Reported Reaction Smoking Status: Former smoker - Past Family History Father Family Medical History: GI Bleed Additional Family Medical History / Comment(s): Bleeding ulcer, age 59. Mother Family Medical History: Cancer Additional Family Medical History / Comment(s): Liver cancer, at age 58. Medications and Allergies Home Medications Medication Instructions Recorded Confirmed Type amLODIPine [Norvasc] 10 mg PO QAM 08/30/24 11/19/24 History Atorvastatin [Lipitor] 40 mg PO QAM 09/30/24 11/19/24 History Erythromycin Base [Erythromycin] 1,000 mg PO TID PRN 11/12/24 11/19/24 History Neomycin 1,000 mg PO TID PRN 11/12/24 11/19/24 History Allergies Allergy/AdvReac Type Severity Reaction Status Date / Time No Known Allergies Allergy Verified 11/19/24 07:23 Physical Exam Vitals: Vital Signs Temp Pulse Pulse Resp BP BP Pulse Ox 11/19/24 15:33 110 H 14 110/74 96 11/19/24 15:15 112 H 14 132/80 94 L 11/19/24 15:00 113 H 14 102/75 95 11/19/24 14:45 110 H 16 108/71 96 11/19/24 14:30 110 H 15 107/86 95 11/19/24 14:15 112 H 14 122/86 93 L 11/19/24 14:00 111 H 14 114/77 94 L 11/19/24 13:45 111 H 14 112/81 94 L 11/19/24 13:37 109 H 15 106/76 93 L 11/19/24 13:15 16 106/75 93 L 11/19/24 13:00 104 H 14 111/75 94 L 11/19/24 12:45 102 H 13 116/81 93 L 11/19/24 12:30 102 H 14 130/81 94 L 11/19/24 12:17 97.6 F 103 H 16 138/87 95 11/19/24 07:26 97.4 F L 76 16 130/81 96 Intake and Output 11/19/24 11/19/24 11/19/24 06:59 14:59 22:59 Intake Total 2550 Output Total 400 100 Balance 2150 -100 Intake: IV 2550 Output: Urine 250 100 Estimated Blood Loss 150 Other: Weight 85.9 kg Results CBC & Chem 7: 11/19/24 14:53 Labs: Abnormal Lab Results - Last 24 Hours (Table) 11/19/24 Range/Units 14:53 Carbon Dioxide 19 L (22-30) mmol/L Glucose 173 H (74-99) mg/dL
[2024-11-19] MEDS: metroNIDAZOLE-NS PMX 500 MG in SALINE 1 100ML.BAG IVPB SCH (18:18)
[2024-11-19] MEDS: KETOROLAC 15 MG/ML 1 ML VIAL IVP SCH (18:18)
[2024-11-19 18:38] LABS: Basophils # (A) 0.01 10*3/uL (0.00-0.10); Basophils % (A) 0.1 %; HCT 40.8 % (39.6-50.0); HGB 13.5 g/dL (13.0-17.0); Lymphocytes # (A) 0.41 10*3/uL (0.90-5.00); Lymphocytes % (A) 2.9 %; MCHC 33.1 g/dL (32.0-37.0); MCV 87.6 fL (80.0-97.0); Mean Platelet Volume 10.5 fL (9.5-12.2); Monocytes # (A) 0.52 10*3/uL (0.20-1.00); Monocytes % (A) 3.6 %; Neutrophils # (A) 13.23 10*3/uL (1.80-7.70); Neutrophils % (A) 92.8 %; Platelet Count 294 10*3/uL (140-440); RBC 4.66 10*6/uL (4.40-5.60); RDW 13.1 % (11.5-14.5); WBC 14.25 10*3/uL (4.50-10.00)
--- NOTE | 2024-11-19 20:39 | P.OP ---
Date of Procedure: 11/19/24 Preoperative Diagnosis: Recurrent Small Bowel Obstruction with History of Perforated Appendicitis Postoperative Diagnosis: Recurrent Small Bowel Obstruction with Right Lower Quadrant Phlegmon and History of Perforated Appendicitis Procedure(s) Performed: Robotic Right Hemicolectomy Anesthesia: DIRK Surgeon: Estiven Mcclendon Estimated Blood Loss (ml): 150 Pathology: other (Right Colon) Condition: stable Disposition: PACU Description of Procedure: The patient went to the operating room and was placed in the supine position. After anesthesia was given, endotracheal intubation was performed. The patient was prepped and draped in usual sterile fashion after a chung catheter was placed. A timeout was performed prior to starting the procedure. An #11 blade was used to make an incision at Ya's point and a 5 mm optiview was used to gain access to the abdomen. The abdomen was insufflated and the patient was position. Additional working robotic ports were placed which included two 8 mm ports and a 12 mm port. The 5 mm optiview port was replaced with an 8 mm port. The robot was then docked. The next portions of the procedure were performed from the robotic console. The abdomen was inspected and the cecum and small bowel were noted to be plastered against the side wall and there was phlegmon and apparent remnant of an abscess cavity in the right lower quadrant. This made the dissection very difficult and tedious. The cecum and small bowel were slowly bluntly peeled away from the side wall. The mesentery of this portion of the bowel was very edematous. This portion of the bowel was also very adhered to the retroperitoneum. There was a healthy portion of terminal ileum which was identified and a mesenteric window was made. The terminal ileum was divided with an Endo SILVER 60 mm blue staple load. A right hemicolectomy was them performed in a medial to lateral approach isolating and ligating the ileocolic artery and making sure to identify the duodenum. Several attempts were made to visualize the right ureter however due to the degree of inflammation and the phlegmon I was not able to visualize the right ureter. Once a healthy portion of the right colon was identified near the hepatic flexure, a mesenteric window was made. A robotic Endo SILVER 60 mm staple load was used to divide the colon. The remaining lateral attachments and mesentery of the right colon specimen were taken down with a ligasure and the specimen was placed away from the field. A side to side functional end to end ileocolic anastomosis was performed between the terminal ileum and the distal healthy right colon. The anastomosis was fashioned with multiple firings of an Endo SILVER 60 mm blue staple load. The abdomen was inspected. There was no active bleeding noted. The abdomen was thoroughly irrigated. The robotic instruments were removed and the robot was un docked. I scrubbed back in at this time and the colon specimen was removed by extending the 12 mm port site. The specimen was removed it its entirety. The fascial defect was closed with a looped #0 PDS suture. The abdomen was again then insufflated. The fascial closure was inspected and appeared to be closed well. The abdomen was again irrigated. Due to the difficulty of the dissection amd extensive inflammation, decision was made to place a 19 F CINTIA drain in the right lower quadrant. The drain was sutured in place with a #2-0 Nylon Suture. The abdomen was then desufflated. Incisions were inspected at this time and there was not active bleeding. Incisions were closed with a skin stapler. Sterile dressings were applied. Anesthesia was reversed and the patient was extubated. The patient was sent to the PACU in stable condition. The patients and sister were updated at the conclusion of the surgery.
[2024-11-20 06:51] LABS: African American GFR (CKD) >90 (>60 ml/min/1.73 sqM); Anion Gap 9 mmol/L; Blood Urea Nitrogen 10 mg/dL (9-20); Calcium 9.4 mg/dL (8.4-10.2); Carbon Dioxide 23 mmol/L (22-30); Chloride 103 mmol/L (98-107); Glucose 110 mg/dL (74-99); Non-African American GFR(CKD) >90 (>60 ml/min/1.73 sqM); Potassium 4.2 mmol/L (3.5-5.1); Sodium 135 mmol/L (137-145)
[2024-11-20] MEDS: ATORVASTATIN 40 MG TAB PO SCH (09:44)
[2024-11-20] MEDS: amLODIPine 10 MG TAB PO SCH (09:44)
[2024-11-20 09:54] LABS: Basophils # (A) 0.01 X 10*3/uL (0.00-0.10); Basophils % (A) 0.1 %; Eosinophils # (A) 0 X 10*3/uL (0.04-0.35); Eosinophils % (A) 0 %; HCT 38.4 % (39.6-50.0); HGB 12.2 g/dL (13.0-17.0); Lymphocytes # (A) 0.64 X 10*3/uL (0.90-5.00); Lymphocytes % (A) 5.8 %; MCH 27.9 pg (27.0-32.0); MCHC 31.8 g/dL (32.0-37.0); MCV 87.7 FL (80.0-97.0); Mean Platelet Volume 11.2 FL (9.5-12.2); Monocytes # (A) 0.76 X 10*3/uL (0.20-1.00); Monocytes % (A) 6.8 %; NRBC Per 100 WBC 0 X 10*3/uL (0.00-0.01); Neutrophils # (A) 9.66 X 10*3/uL (1.80-7.70); Neutrophils % (A) 86.8 %; Platelet Count 274 X 10*3/uL (140-440); RBC 4.38 X 10*6/uL (4.40-5.60); RDW 13.1 % (11.5-14.5); WBC 11.13 X 10*3/uL (4.50-10.00)
[2024-11-20] MEDS: SODIUM CHLORIDE 0.9% 1,000 ML IV ONE (11:46)
--- NOTE | 2024-11-20 14:20 | P.PN ---
Progress Note - Text Progress Note Date: 11/20/24 Patient seen and examined. No acute events overnight. VSS. Not passing gas or having bowel function. He is making good urine. CINTIA drain is serosangenous. Pain is controlled. VSS General-NAD CVS-RRR Lungs-NLB Abdomen-soft, appropriate TTP, ND, incisions C/D/I. CINTIA-serosangenous Ext- no edema 73 year old male POD #1 Robotic Right Hemicolectomy -NPO -IV fluids -Rocephin/Flagyl -Pain and Nausea Control -Maintain chung catheter one more day to monitor urine output -Physical Therapy consulted -OOB, ambulate, IS -Medicine Recs -AM labs Estiven Mcclendon [facility] [phone]
--- NOTE | 2024-11-20 15:59 | P.PN ---
Subjective Progress Note Date: 11/20/24 History of present illness; Patient is a 73-year-old male with hyperlipidemia, hypertension who presents for elective right hemicolectomy. Patient has history of recurrent small bowel obstruction secondary to perforated appendicitis with associated phlegmon. He had a perforated appendicitis July 2024 and was admitted to hospital for appendectomy. He later had phlegmon and bowel obstruction. Patient then followed up with general surgery outpatient and had planned surgery today. Patient is now postop with no known surgical complications. Patient is sitting up in bed resting with no complaints of pain. Patient reports absence of chest pain, palpitations, shortness of breath. 11/20/2024patient seen and examined at bedside. No chest pain, shortness of breath. His pain is controlled. He is not passing gas or had bowel movement thus far. Remains NPO. REVIEW OF SYSTEMS: Pertinent positives and negatives noted in HPI. All other symptoms are negative. PHYSICAL EXAMINATION: Vitals reviewed GENERAL: Resting comfortably in bed. NECK: No tracheal deviation, full range of motion. CARDIOVASCULAR: S1 and S2 present. No murmurs, rubs, or gallops. PULMONARY: Chest is clear to auscultation, no wheezing, rhonchi, or crackles. ABDOMEN: Soft, nontender, nondistended. No palpable organomegaly. EXTREMITIES: No apparent cyanosis, clubbing. No pedal edema. NEUROLOGICAL: Gross neurological examination with no apparent focal deficits. Today significant findings: CBC pending, sodium 135, glucose 110 No imaging today Assessment and plan: Patient is a 73-year-old male with hyperlipidemia, hypertension who presents for right hemicolectomy. #Essential hypertension -resume home amlodipine 10 mg daily # Hyperlipidemia - resume home atorvastatin 40 mg daily # Robotic right hemicolectomy # History of recurrent small bowel obstruction secondary to perforated appendicitis with associated phlegmon Ceftriaxone 2 mg daily, metronidazole 5 mg IV every 8 hours -Pain management and DVT prophylaxis per primary surgical team F: IV LR E: Replete as needed N: N.p.o. Code status: Full code Follow up CBC and CMP in AM Juan Manuel Torrez MD Internal Medicine Resident, PGY1 Dictation was produced using [employer] dictation software. Please excuse any grammatical, word or spelling errors. Thank you for allowing us to participate in the care of this pleasant patient. Do not hesitate to contact us with questions. Someone can be reached from the [facility] [place] [facility] hospitalist group all hours of the day at [phone] or via perfect serve. I have seen and evaluated the patient today. Discussed with the resident and agree with the residents finding and plan as documented in the resident's note. Changes highlighted in blue font. Objective - Vital Signs Vital signs: Vital Signs Temp 97.9 F 11/20/24 07:44 Pulse 89 11/20/24 07:44 Resp 16 11/20/24 07:44 BP 134/74 11/20/24 07:44 Pulse Ox 98 11/20/24 07:44 FiO2 Intake & Output 11/19/24 11/20/24 11/20/24 18:59 06:59 18:59 Intake Total 2550 1080 Output Total 1000 630 Balance 1550 450 Weight 85.9 kg Intake: IV 2550 Oral 1080 Output: Drainage 30 Right Abdomen 30 Urine 850 600 Estimated Blood Loss 150 Other: Voiding Method Indwelling Catheter - Labs CBC & Chem 7: 11/20/24 03:24 11/20/24 03:24 Labs: Abnormal Lab Results - Last 24 Hours (Table) 11/19/24 11/19/24 11/20/24 Range/Units 14:53 18:13 03:24 WBC 14.25 H (4.50-10.00) 10*3/uL Immature Gran # 0.08 H (0.00-0.04) 10*3/uL Neutrophils # 13.23 H (1.80-7.70) 10*3/uL Lymphocytes # 0.41 L (0.90-5.00) 10*3/uL Eosinophils # 0.00 L (0.04-0.35) 10*3/uL Sodium 135 L (137-145) mmol/L Carbon Dioxide 19 L (22-30) mmol/L Creatinine 0.56 L (0.66-1.25) mg/dL Glucose 173 H 110 H (74-99) mg/dL
[2024-11-20] MEDS: HEPARIN SODIUM,PORCINE 5,000 UNIT/ML 1 ML VIAL SQ SCH (22:50)
[2024-11-21 08:33] LABS: Basophils # (A) 0.02 10*3/uL (0.00-0.10); Basophils % (A) 0.2 %; Eosinophils # (A) 0.01 10*3/uL (0.04-0.35); Eosinophils % (A) 0.1 %; HCT 38.9 % (39.6-50.0); HGB 12.5 g/dL (13.0-17.0); Lymphocytes # (A) 0.89 10*3/uL (0.90-5.00); Lymphocytes % (A) 6.9 %; MCH 28.1 pg (27.0-32.0); MCHC 32.1 g/dL (32.0-37.0); MCV 87.4 fL (80.0-97.0); Mean Platelet Volume 10.8 fL (9.5-12.2); Monocytes # (A) 1.23 10*3/uL (0.20-1.00); Monocytes % (A) 9.5 %; Neutrophils # (A) 10.68 10*3/uL (1.80-7.70); Neutrophils % (A) 82.8 %; Platelet Count 251 10*3/uL (140-440); RBC 4.45 10*6/uL (4.40-5.60); RDW 13.2 % (11.5-14.5)
[2024-11-21 09:01] LABS: African American GFR (CKD) >90 (>60 ml/min/1.73 sqM); Anion Gap 10 mmol/L; Blood Urea Nitrogen 11 mg/dL (9-20); Carbon Dioxide 24 mmol/L (22-30); Chloride 102 mmol/L (98-107); Glucose 99 mg/dL (74-99); Non-African American GFR(CKD) >90 (>60 ml/min/1.73 sqM); Potassium 3.7 mmol/L (3.5-5.1); Sodium 136 mmol/L (137-145)
--- NOTE | 2024-11-21 13:01 | P.PN ---
Subjective Progress Note Date: 11/21/24 Subjective: Patient seen and examined at bedside. No acute events overnight. No bowel function at the moment. Caraballo catheter in place. Pertinent positives and negatives as discussed above, a complete review of systems was performed and all other systems are negative. Vitals Signs Reviewed. General: Nontoxic, no distress, appears at stated age Derm: Warm, dry, dressing clean, dry, intact Head: Atraumatic, normocephalic, symmetric Eyes: EOMI, no lid lag, anicteric sclera Mouth: No lip lesion, mucus membranes moist Cardiovascular: S1S2 reg, no murmur Lungs: CTA bilateral, no rhonchi, no rales, no accessory muscle use Abdominal: Soft, nontender to palpation, no guarding, no appreciable organomegaly Ext: No gross muscle atrophy, no edema, no contractures Neuro: CN II-XI grossly intact, no focal neuro deficits Psych: Alert, oriented, appropriate affect Data Reviewed Today: Pertinent Labs: WBC 12.9, hemoglobin 12.5, sodium 136, potassium 3.7, creatinine 0.57 Imaging: No new imaging Assessment and Plan: Active: Robotic right hemicolectomy History of recurrent SBO and perforated appendicitis with associated phlegmon Leukocytosis, anticipated outcome of surgery - On IV ceftriaxone 2 g every 24 hours, Flagyl IV 500 every 8 hours per surgery - Okay to continue lactated Ringer at 125 cc an hour - Patient remains n.p.o. - Awaiting bowel function - Encourage ambulation, if tolerating, consider discontinuing Caraballo catheter Hypertension - Continue amlodipine 10 mg daily Dyslipidemia - Continue atorvastatin 40 mg daily DVT ppx: Subcu heparin Thank you for allowing us to participate in the care of this pleasant patient. Do not hesitate to contact us with questions. Someone can be reached from the [place] hospitalist group all hours of the day at [phone] or via perfect serve. Objective - Vital Signs Vital signs: Vital Signs Temp 97.7 F 11/21/24 07:58 Pulse 84 11/21/24 07:58 Resp 17 11/21/24 07:58 BP 147/78 11/21/24 07:58 Pulse Ox 97 11/21/24 07:58 FiO2 Intake & Output 11/20/24 11/21/24 11/21/24 18:59 06:59 18:59 Intake Total 0 Output Total 1600 1715 Balance -1599 -171 Intake: Oral 0 Output: Drainage 15 Right Abdomen 15 Urine 1600 1700 Other: Voiding Method Indwelling Catheter Indwelling Catheter Indwelling Catheter - Labs CBC & Chem 7: 11/21/24 07:39 11/21/24 07:39 Labs: Abnormal Lab Results - Last 24 Hours (Table) 11/21/24 11/21/24 Range/Units 07:39 07:39 WBC 12.90 H (4.50-10.00) 10*3/uL Hgb 12.5 L (13.0-17.0) g/dL Hct 38.9 L (39.6-50.0) % Immature Gran # 0.07 H (0.00-0.04) 10*3/uL Neutrophils # 10.68 H (1.80-7.70) 10*3/uL Lymphocytes # 0.89 L (0.90-5.00) 10*3/uL Monocytes # 1.23 H (0.20-1.00) 10*3/uL Eosinophils # 0.01 L (0.04-0.35) 10*3/uL Sodium 136 L (137-145) mmol/L Creatinine 0.57 L (0.66-1.25) mg/dL
--- NOTE | 2024-11-21 16:12 | P.PN ---
Progress Note - Text Progress Note Date: 11/21/24 Patient seen and examined. No acute events overnight. VSS. Still not passing gas or having bowel function. He is making good urine. CINTIA drain is serosangenous. He is having mild post operative abdominal pain which is controlled with pain medication. He is making good urine. VSS General-NAD CVS-RRR Lungs-NLB Abdomen-soft, appropriate TTP, ND, incisions C/D/I. CINTIA-serosangenous Ext- no edema 73 year old male POD #2 Robotic Right Hemicolectomy -NPO -IV fluids -Rocephin/Flagyl -2 View Abdominal X-Ray ordered -Pain and Nausea Control -Physical Therapy consulted -OOB, ambulate, IS -Medicine Recs -AM labs Estiven Mcclendon [facility] [phone]
--- NOTE | 2024-11-21 17:50 | XR ---
EXAMINATION TYPE: XR abdomen 2V DATE OF EXAM: 11/21/2024 5:43 PM COMPARISON: None available. CLINICAL INDICATION: Male, 73 years old with history of Ileus; PHH, pain TECHNIQUE: Two views of the abdomen were obtained. FINDINGS: The bowel gas pattern is nonspecific without dilated loops of small or large bowel. Scatter ed air-fluid levels. No large volume pneumoperitoneum appreciated on operative. The osseous structure s are intact. No abnormal calcifications are present. Fecal material and gas are demonstrated throug hout the colon and rectum. IMPRESSION: Nonobstructive bowel gas pattern and nonspecific scattered air-fluid levels. Recommend clinical corre lation for possible ileus. [facility], , 11/21/2024 5:48 PM
--- NOTE | 2024-11-21 18:58 | P.PN ---
Progress Note - Text Progress Note Date: 11/21/24 Abdominal X-Ray performed and shows scattered air fluid levels associated with ileus. Patient is not passing gas. No BMs. He denies nausea and vomiting. At this time, will continue to keep patient NPO with ice chips and medications. Will continue to monitor for bowel function. Estiven Mcclendon DO [facility] [phone]
[2024-11-22 10:18] LABS: Basophils # (A) 0.02 X 10*3/uL (0.00-0.10); Basophils % (A) 0.3 %; Eosinophils # (A) 0.03 X 10*3/uL (0.04-0.35); Eosinophils % (A) 0.4 %; HCT 36.4 % (39.6-50.0); HGB 11.7 g/dL (13.0-17.0); Lymphocytes # (A) 1.05 X 10*3/uL (0.90-5.00); Lymphocytes % (A) 13.3 %; MCH 28.1 pg (27.0-32.0); MCHC 32.1 g/dL (32.0-37.0); MCV 87.3 FL (80.0-97.0); Mean Platelet Volume 11.3 FL (9.5-12.2); Monocytes % (A) 8.9 %; NRBC Per 100 WBC 0 X 10*3/uL (0.00-0.01); Neutrophils # (A) 6.07 X 10*3/uL (1.80-7.70); Neutrophils % (A) 76.7 %; Platelet Count 206 X 10*3/uL (140-440); RBC 4.17 X 10*6/uL (4.40-5.60); RDW 13.2 % (11.5-14.5)
[2024-11-22 10:25] LABS: Calcium 8.2 mg/dL (8.7-10.3); Carbon Dioxide 22.4 mmol/L (21.6-31.8); Chloride 102 mmol/L (96-109); Glucose 89 mg/dL (70-110); Potassium 3.5 mmol/L (3.5-5.5); Sodium 135 mmol/L (135-145)
--- NOTE | 2024-11-22 12:24 | P.PN ---
Subjective Progress Note Date: 11/22/24 Subjective: Patient seen and examined at bedside. No acute events overnight. Had bowel movement this morning. Caraballo catheter in place, voiding trial today. Pertinent positives and negatives as discussed above, a complete review of systems was performed and all other systems are negative. Vitals Signs Reviewed. General: Nontoxic, no distress, appears at stated age Derm: Warm, dry, dressing clean, dry, intact Head: Atraumatic, normocephalic, symmetric Eyes: EOMI, no lid lag, anicteric sclera Mouth: No lip lesion, mucus membranes moist Cardiovascular: S1S2 reg, no murmur Lungs: CTA bilateral, no rhonchi, no rales, no accessory muscle use Abdominal: Soft, nontender to palpation, no guarding, no appreciable organomegaly Ext: No gross muscle atrophy, no edema, no contractures Neuro: CN II-XI grossly intact, no focal neuro deficits Psych: Alert, oriented, appropriate affect Data Reviewed Today: Pertinent Labs: WBC 7.9, hemoglobin 11.7, sodium 135, potassium 3.5, creatinine 0.5, glucose 89 Imaging: No new imaging Assessment and Plan: Active: Robotic right hemicolectomy History of recurrent SBO and perforated appendicitis with associated phlegmon Leukocytosis, anticipated outcome of surgery - On IV ceftriaxone 2 g every 24 hours, Flagyl IV 500 every 8 hours per surgery - Okay to continue lactated Ringer at 125 cc an hour - Patient remains n.p.o., advance per general surgery -Had a bowel movement, Caraballo catheter to be discontinued today Hypertension - Continue amlodipine 10 mg daily Dyslipidemia - Continue atorvastatin 40 mg daily Patient is medically optimized for discharge from medicine standpoint. DVT ppx: Subcu heparin Juan Manuel Torrez MD Internal Medicine Resident, PGY1 Thank you for allowing us to participate in the care of this pleasant patient. Do not hesitate to contact us with questions. Someone can be reached from the [facility] hospitalist group all hours of the day at [phone] or via perfect serve. I have seen and evaluated the patient today. Discussed with the resident and agree with the residents finding and plan as documented in the resident's note. Changes highlighted in blue font. Objective - Vital Signs Vital signs: Vital Signs Temp 97.6 F 11/22/24 05:47 Pulse 79 06/23/25 05:47 Resp 16 11/22/24 05:47 BP 134/75 11/22/24 05:47 Pulse Ox 98 11/22/24 05:47 FiO2 Intake & Output 11/21/24 11/22/24 11/22/24 18:59 06:59 18:59 Output Total 1200 700 Balance -1200 -700 Output: Urine 1200 700 Other: Voiding Method Indwelling Catheter Indwelling Catheter Indwelling Catheter # Bowel Movements 1 - Labs CBC & Chem 7: 11/22/24 05:26 11/22/24 05:26 Labs: Abnormal Lab Results - Last 24 Hours (Table) 11/21/24 11/21/24 Range/Units 07:39 07:39 WBC 12.90 H (4.50-10.00) 10*3/uL Hgb 12.5 L (13.0-17.0) g/dL Hct 38.9 L (39.6-50.0) % Immature Gran # 0.07 H (0.00-0.04) 10*3/uL Neutrophils # 10.68 H (1.80-7.70) 10*3/uL Lymphocytes # 0.89 L (0.90-5.00) 10*3/uL Monocytes # 1.23 H (0.20-1.00) 10*3/uL Eosinophils # 0.01 L (0.04-0.35) 10*3/uL Sodium 136 L (137-145) mmol/L Creatinine 0.57 L (0.66-1.25) mg/dL
--- NOTE | 2024-11-22 14:58 | P.PN ---
Subjective Progress Note Date: 11/22/24 SURGICAL PROGRESS NOTE CHIEF COMPLAINT: Recurrent small bowel obstruction HISTORY OF PRESENT ILLNESS: Patient is postop day #3 status post robotic right hemicolectomy for recurrent small bowel obstruction with right lower quadrant phlegmon and history of perforated appendicitis. Patient reports he is feeling better today. He is sitting at bedside chair. He did have a small bowel movement. Denies any nausea or vomiting. Afebrile. WBC is down from 12-7. CINTIA drain serosanguineous output PHYSICAL EXAM: VITAL SIGNS: Reviewed. GENERAL: Well-developed in no acute distress. ABDOMEN: Soft. Mildly distended. Incisional dressings clean dry and intact. Dressing around CINTIA drain with minimal serosanguineous drainage. NEUROLOGIC: Alert and oriented. Cranial nerves II through XII grossly intact. ASSESSMENT: 1. Recurrent small bowel obstruction with right lower quadrant phlegmon and history of perforated appendicitis 2. Ileus PLAN: - Keep patient n.p.o. except ice chips and popsicles - Encourage patient to ambulate - Encourage patient to use incentive spirometer - Continue antibiotics - Continue pain management - DVT prophylaxis subcu heparin Physician Supervisor [facility] note has been reviewed by physician. Signing provider agrees with the documented findings, assessment, and plan of care. Attestation Patient seen and examined at bedside. Postoperative robotic right hemicolectomy. Patient did have flatus and bowel movement this morning. Leukocytosis resolved. Plan to advance to clear liquid diet. Continue to increase activity. Continue CINTIA drain for now. Marti Hanley, Objective - Vital Signs Vital signs: Vital Signs Temp 97.8 F 11/22/24 12:57 Pulse 84 11/22/24 12:57 Resp 18 11/22/24 12:57 BP 126/79 11/22/24 12:57 Pulse Ox 97 11/22/24 12:57 FiO2 Intake & Output 11/21/24 11/22/24 11/22/24 18:59 06:59 18:59 Output Total 1200 700 Balance -1200 -700 Output: Urine 1200 700 Other: Voiding Method Indwelling Catheter Indwelling Catheter Indwelling Catheter # Bowel Movements 1 - Labs CBC & Chem 7: 11/22/24 05:26 11/22/24 05:26 Labs: Abnormal Lab Results - Last 24 Hours (Table) 11/22/24 11/22/24 Range/Units 05:26 05:26 RBC 4.17 L (4.40-5.60) X 10*6/uL Hgb 11.7 L (13.0-17.0) g/dL Hct 36.4 L (39.6-50.0) % Eosinophils # 0.03 L (0.04-0.35) X 10*3/uL Creatinine 0.5 L (0.6-1.5) mg/dL BUN/Creatinine Ratio 22.00 H (12.00-20.00) Ratio Calcium 8.2 L (8.7-10.3) mg/dL
[2024-11-23 08:29] LABS: Blood Urea Nitrogen 9.5 mg/dL (9.0-27.0); Calcium 8.2 mg/dL (8.7-10.3); Carbon Dioxide 21.4 mmol/L (21.6-31.8); Chloride 105 mmol/L (96-109); Glucose 94 mg/dL (70-110); Potassium 3.3 mmol/L (3.5-5.5); Sodium 139 mmol/L (135-145)
--- NOTE | 2024-11-23 11:52 | P.PN ---
Subjective Progress Note Date: 11/23/24 Subjective: Patient seen and examined at bedside. No acute events overnight. Had bowel movement this morning. Caraballo catheter in place, voiding trial today. 11/23/2024 Patient seen and examined at bedside. No acute events overnight. Had bowel movement today. Advanced to clear liquid diet and tolerating well, full liquid for lunch. Caraballo catheter removed. Pertinent positives and negatives as discussed above, a complete review of systems was performed and all other systems are negative. Vitals Signs Reviewed. General: Nontoxic, no distress, appears at stated age Cardiovascular: S1S2 reg, no murmur Lungs: CTA bilateral, no rhonchi, no rales, no accessory muscle use Abdominal: Soft, nontender to palpation, no guarding, no appreciable organomegaly Ext: No gross muscle atrophy, no edema, no contractures Neuro: CN II-XI grossly intact, no focal neuro deficits Psych: Alert, oriented, appropriate affect Data Reviewed Today: Pertinent Labs: Sodium 139, potassium 3.3, bicarb 21.4, anion gap 12.6, creatinine 0.5 Imaging: No new imaging Assessment and Plan: Active: Robotic right hemicolectomy History of recurrent SBO and perforated appendicitis with associated phlegmon Leukocytosis, anticipated outcome of surgery - On IV ceftriaxone 2 g every 24 hours, Flagyl IV 500 every 8 hours per surgery - Okay to continue lactated Ringer at 125 cc an hour - CLD tolerated well, advance to full liquid diet for lunch today -Had a bowel movement Hypokalemia Replete potassium, monitor BMP Hypertension - Continue amlodipine 10 mg daily Dyslipidemia - Continue atorvastatin 40 mg daily Patient is medically optimized for discharge from medicine standpoint. DVT ppx: Subcu heparin Juan Manuel Torrez MD Internal Medicine Resident, PGY1 Thank you for allowing us to participate in the care of this pleasant patient. Do not hesitate to contact us with questions. Someone can be reached from the [facility] hospitalist group all hours of the day at [phone] or via Zinkia serve. I have seen and evaluated the patient today. Discussed with the resident and agree with the residents finding and plan as documented in the resident's note. Changes highlighted in blue font. Objective - Vital Signs Vital signs: Vital Signs Temp 98.0 F 11/23/24 07:31 Pulse 80 11/23/24 07:31 Resp 16 11/23/24 07:31 BP 127/79 11/23/24 07:31 Pulse Ox 99 11/23/24 07:31 FiO2 Intake & Output 11/22/24 11/23/24 11/23/24 18:59 06:59 18:59 Intake Total 540 Output Total 675 60 Balance -675 480 Intake: Oral 540 Output: Drainage 25 Right Abdomen 25 Urine 675 Other 35 Other: Voiding Method Indwelling Catheter # Voids 1 5 # Bowel Movements 1 - Labs CBC & Chem 7: 11/22/24 05:26 11/23/24 02:43 Labs: Abnormal Lab Results - Last 24 Hours (Table) 11/22/24 11/22/24 Range/Units 05:26 05:26 RBC 4.17 L (4.40-5.60) X 10*6/uL Hgb 11.7 L (13.0-17.0) g/dL Hct 36.4 L (39.6-50.0) % Eosinophils # 0.03 L (0.04-0.35) X 10*3/uL Creatinine 0.5 L (0.6-1.5) mg/dL BUN/Creatinine Ratio 22.00 H (12.00-20.00) Ratio Calcium 8.2 L (8.7-10.3) mg/dL
[2024-11-23] MEDS ORDERED: HYDROcodone/APAP 5-325MG 1 EACH TAB PO PRN (13:14)
--- NOTE | 2024-11-23 13:16 | P.PN ---
Subjective Progress Note Date: 11/23/24 SURGICAL PROGRESS NOTE CHIEF COMPLAINT: Recurrent small bowel obstruction HISTORY OF PRESENT ILLNESS: Patient is postop day #4 status post robotic right hemicolectomy for recurrent small bowel obstruction with right lower quadrant phlegmon and history of perforated appendicitis. Patient sitting at bedside chair. His pain is controlled. He is having bowel movements. Denies any nausea or vomiting. Would like more to eat. Afebrile. Potassium 3.3. CINTIA drain 25 mL serosanguineous drainage PHYSICAL EXAM: VITAL SIGNS: Reviewed. GENERAL: Well-developed in no acute distress. ABDOMEN: Soft. Nondistended. Incision sites dressing was pulled back and are clean dry and intact. Patient does have some serosanguineous drainage noted around the CINTIA drain. CINTIA drain bulb serosanguineous drainage NEUROLOGIC: Alert and oriented. Cranial nerves II through XII grossly intact. ASSESSMENT: 1. Recurrent small bowel obstruction with right lower quadrant phlegmon and history of perforated appendicitis 2. Ileus 3. Hypokalemia PLAN: -Advance diet to full liquids -Discontinue IV fluids -[place] added for oral pain medication -Medicine service replacing potassium -Surgical dressings removed. Will have nursing staff cover incision sites with gauze. -Patient can shower -Encourage patient to ambulate -Encourage patient to use incentive spirometer -Continue antibiotics -DVT prophylaxis subcu heparin Physician [employer] note has been reviewed by physician. Signing provider agrees with the documented findings, assessment, and plan of care. Attestation Patient seen and examined at bedside. Had multiple loose bowel movements. Pain is controlled. Increasing activity. CINTIA drain with serosanguineous output. Plan to advance diet to full liquid diet. Continue antibiotics at this time. Marti Hanley DO Objective - Vital Signs Vital signs: Vital Signs Temp 98.0 F 11/23/24 07:31 Pulse 80 11/23/24 07:31 Resp 16 11/23/24 07:31 BP 127/79 11/23/24 07:31 Pulse Ox 99 11/23/24 07:31 FiO2 Intake & Output 11/22/24 11/23/24 11/23/24 18:59 06:59 18:59 Intake Total 540 580 Output Total 675 60 Balance -675 480 580 Intake: Oral 540 580 Output: Drainage 25 Right Abdomen 25 Urine 675 Other 35 Other: Voiding Method Indwelling Catheter # Voids 1 5 # Bowel Movements 1 - Labs CBC & Chem 7: 11/22/24 05:26 11/23/24 02:43 Labs: Abnormal Lab Results - Last 24 Hours (Table) 11/23/24 Range/Units 02:43 Potassium 3.3 L (3.5-5.5) mmol/L Carbon Dioxide 21.4 L (21.6-31.8) mmol/L Anion Gap 12.60 H (4.00-12.00) mmol/L Creatinine 0.5 L (0.6-1.5) mg/dL Calcium 8.2 L (8.7-10.3) mg/dL
[2024-11-23] MEDS: POTASSIUM CHLORIDE ER 20 MEQ TAB.ER PO STA (15:51)
[2024-11-24 08:34] LABS: BUN/Creat Ratio 8.67 Ratio (12.00-20.00); Blood Urea Nitrogen 5.2 mg/dL (9.0-27.0); Calcium 8.2 mg/dL (8.7-10.3); Carbon Dioxide 22.6 mmol/L (21.6-31.8); Chloride 106 mmol/L (96-109); Glucose 98 mg/dL (70-110); Potassium 3.7 mmol/L (3.5-5.5); Sodium 138 mmol/L (135-145)
--- NOTE | 2024-11-24 10:46 | P.PN ---
Subjective Progress Note Date: 11/24/24 Subjective: Patient seen and examined at bedside. No acute events overnight. Had bowel movement this morning. Caraballo catheter in place, voiding trial today. 11/23/2024 Patient seen and examined at bedside. No acute events overnight. Had bowel movement today. Advanced to clear liquid diet and tolerating well, full liquid for lunch. Caraballo catheter removed. 11/24/2024 Patient seen and examined at bedside. No acute events overnight. Having bowel movements, tolerating diet well and walking. Pertinent positives and negatives as discussed above, a complete review of systems was performed and all other systems are negative. Vitals Signs Reviewed. General: Nontoxic, no distress, appears at stated age Cardiovascular: S1S2 reg, no murmur Lungs: CTA bilateral, no rhonchi, no rales, no accessory muscle use Abdominal: Soft, nontender to palpation, no guarding, no appreciable organomegaly Ext: No gross muscle atrophy, no edema, no contractures Neuro: CN II-XI grossly intact, no focal neuro deficits Psych: Alert, oriented, appropriate affect Data Reviewed Today: Pertinent Labs: Sodium 138, potassium 3.7, BUN 5.2, creatinine 0.6 Imaging: No new imaging Assessment and Plan: Active: Robotic right hemicolectomy History of recurrent SBO and perforated appendicitis with associated phlegmon Leukocytosis, anticipated outcome of surgery - On IV ceftriaxone 2 g every 24 hours, Flagyl IV 500 every 8 hours per surgery - Okay to continue lactated Ringer at 20 cc an hour -Tolerating diet well -Having regular bowel movements Hypokalemia, resolved Replete potassium, monitor BMP Hypertension - Continue amlodipine 10 mg daily Dyslipidemia - Continue atorvastatin 40 mg daily Patient is medically optimized for discharge from medicine standpoint. DVT ppx: Subcu heparin Juan Manuel Torrez MD Internal Medicine Resident, PGY1 Thank you for allowing us to participate in the care of this pleasant patient. Do not hesitate to contact us with questions. Someone can be reached from the [facility] hospitalist group all hours of the day at [phone] or via perfect serve. I have seen and evaluated the patient today. Discussed with the resident and agree with the residents finding and plan as documented in the resident's note. Changes highlighted in blue font. Objective - Vital Signs Vital signs: Vital Signs Temp 97.5 F L 11/24/24 07:23 Pulse 79 11/24/24 07:23 Resp 16 11/24/24 07:23 BP 133/82 11/24/24 07:23 Pulse Ox 95 11/24/24 07:23 FiO2 Intake & Output 11/23/24 11/24/24 11/24/24 18:59 06:59 18:59 Intake Total 580 1080 Output Total 35 25 Balance 545 1055 Intake: Oral 580 1080 Output: Drainage 35 25 Right Abdomen 35 25 Other: Voiding Method Indwelling Catheter # Voids 2 2 - Labs CBC & Chem 7: 11/22/24 05:26 11/24/24 04:45 Labs: Abnormal Lab Results - Last 24 Hours (Table) 11/23/24 Range/Units 02:43 Potassium 3.3 L (3.5-5.5) mmol/L Carbon Dioxide 21.4 L (21.6-31.8) mmol/L Anion Gap 12.60 H (4.00-12.00) mmol/L Creatinine 0.5 L (0.6-1.5) mg/dL Calcium 8.2 L (8.7-10.3) mg/dL
--- NOTE | 2024-11-24 14:17 | P.PN ---
Subjective Progress Note Date: 11/24/24 SURGICAL PROGRESS NOTE CHIEF COMPLAINT: Recurrent small bowel obstruction HISTORY OF PRESENT ILLNESS: Patient is postop day #5 status post robotic right hemicolectomy for recurrent small bowel obstruction with right lower quadrant phlegmon and history of perforated appendicitis. Patient having bowel mo vements. He reports his pain is controlled. He is tolerating the full liquid diet and asking for further advancement of food. Afebrile. Potassium improved from 3.3-3.7 PHYSICAL EXAM: VITAL SIGNS: Reviewed. GENERAL: Well-developed in no acute distress. ABDOMEN: Soft. Nondistended. Incision sites dressing was pulled back and are clean dry and intact. Patient does have some serosanguineous drainage noted around the CINTIA drain. CINTIA drain serosanguineous output 25ml NEUROLOGIC: Alert and oriented. Cranial nerves II through XII grossly intact. ASSESSMENT: 1. Recurrent small bowel obstruction with right lower quadrant phlegmon and history of perforated appendicitis 2. Ileus 3. Hypokalemia PLAN: -Advance diet to low fiber -Anticipate possible discharge tomorrow -Encourage patient to ambulate -Encourage patient to use incentive spirometer -Continue antibiotics -DVT prophylaxis subcu heparin Physician Communication Analyst note has been reviewed by physician. Signing provider agrees with the documented findings, assessment, and plan of care. Objective - Vital Signs Vital signs: Vital Signs Temp 97.5 F L 11/24/24 07:23 Pulse 79 11/24/24 07:23 Resp 16 11/24/24 07:23 BP 133/82 11/24/24 07:23 Pulse Ox 95 11/24/24 07:23 FiO2 Intake & Output 11/23/24 11/24/24 11/24/24 18:59 06:59 18:59 Intake Total 580 1080 Output Total 35 25 Balance 545 1055 Intake: Oral 580 1080 Output: Drainage 35 25 Right Abdomen 35 25 Other: Voiding Method Indwelling Catheter # Voids 2 2 - Labs CBC & Chem 7: 11/22/24 05:26 11/24/24 04:45 Labs: Abnormal Lab Results - Last 24 Hours (Table) 11/24/24 Range/Units 04:45 BUN 5.2 L (9.0-27.0) mg/dL BUN/Creatinine Ratio 8.67 L (12.00-20.00) Ratio Calcium 8.2 L (8.7-10.3) mg/dL
[2024-11-25 03:44] VITALS: TEMP 97.8
[2024-11-25 07:46] VITALS: BP 107/75; PULSE 77; RESP 17
[2024-11-25 08:01] LABS: Basophils # (A) 0.03 X 10*3/uL (0.00-0.10); Basophils % (A) 0.5 %; Eosinophils # (A) 0.18 X 10*3/uL (0.04-0.35); Eosinophils % (A) 2.7 %; HCT 36.8 % (39.6-50.0); Lymphocytes # (A) 1.07 X 10*3/uL (0.90-5.00); Lymphocytes % (A) 16.3 %; MCH 28.2 pg (27.0-32.0); MCHC 32.6 g/dL (32.0-37.0); MCV 86.6 FL (80.0-97.0); Monocytes # (A) 0.64 X 10*3/uL (0.20-1.00); Monocytes % (A) 9.7 %; NRBC Per 100 WBC 0 X 10*3/uL (0.00-0.01); Neutrophils # (A) 4.59 X 10*3/uL (1.80-7.70); Neutrophils % (A) 69.9 %; Platelet Count 229 X 10*3/uL (140-440); RBC 4.25 X 10*6/uL (4.40-5.60); RDW 13.2 % (11.5-14.5); WBC 6.57 X 10*3/uL (4.50-10.00)
[2024-11-25 08:06] LABS: BUN/Creat Ratio 8.67 Ratio (12.00-20.00); Blood Urea Nitrogen 5.2 mg/dL (9.0-27.0); Calcium 8.5 mg/dL (8.7-10.3); Carbon Dioxide 23.1 mmol/L (21.6-31.8); Chloride 105 mmol/L (96-109); Glucose 102 mg/dL (70-110); Potassium 3.9 mmol/L (3.5-5.5); Sodium 138 mmol/L (135-145)
[2024-11-25 09:58] VITALS: BMI 28.8
--- NOTE | 2024-11-25 11:06 | P.PN ---
Subjective Progress Note Date: 11/25/24 Subjective: Patient seen and examined at bedside. No acute events overnight. Had bowel movement this morning. Caraballo catheter in place, voiding trial today. 11/23/2024 Patient seen and examined at bedside. No acute events overnight. Had bowel movement today. Advanced to clear liquid diet and tolerating well, full liquid for lunch. Caraballo catheter removed. 11/24/2024 Patient seen and examined at bedside. No acute events overnight. Having bowel movements, tolerating diet well and walking. 11/25/2024 Patient seen and examined at bedside. No acute events overnight. Having bowel movements, tolerating diet well and walking. Pertinent positives and negatives as discussed above, a complete review of systems was performed and all other systems are negative. Vitals Signs Reviewed. General: Nontoxic, no distress, appears at stated age Cardiovascular: S1S2 reg, no murmur Lungs: CTA bilateral, no rhonchi, no rales, no accessory muscle use Abdominal: Soft, nontender to palpation, no guarding, no appreciable organomegaly Ext: No gross muscle atrophy, no edema, no contractures Data Reviewed Today: Pertinent Labs: WBC 6.5, hemoglobin 12.0, sodium 138, potassium 3.9 Imaging: No new imaging Assessment and Plan: Active: Robotic right hemicolectomy History of recurrent SBO and perforated appendicitis with associated phlegmon Leukocytosis, anticipated outcome of surgery -Completed ceftriaxone 2 g every 24 hours, Flagyl IV 500 every 8 hours per surgery -Discontinue IV fluids -Tolerating diet well, advance as tolerated -Having regular bowel movements Hypokalemia, resolved Replete potassium, monitor BMP Hypertension - Continue amlodipine 10 mg daily Dyslipidemia - Continue atorvastatin 40 mg daily Patient is medically optimized for discharge from medicine standpoint. DVT ppx: Subcu heparin Juan Manuel Torrez MD Internal Medicine Resident, PGY1 Thank you for allowing us to participate in the care of this pleasant patient. Do not hesitate to contact us with questions. Someone can be reached from the [facility] hospitalist group all hours of the day at [phone] or via perfect serve. I have seen and evaluated the patient today. Discussed with the resident and agree with the residents finding and plan as documented in the resident's note. Changes highlighted in blue font. Objective - Vital Signs Vital signs: Vital Signs Temp 97.8 F 11/25/24 07:08 Pulse 77 11/25/24 07:08 Resp 17 11/25/24 07:08 BP 107/75 11/25/24 07:08 Pulse Ox 96 11/25/24 07:08 FiO2 Intake & Output 11/24/24 11/25/24 11/25/24 18:59 06:59 18:59 Intake Total 540 Balance 540 Intake: Oral 540 Other: # Voids 4 4 # Bowel Movements 2 - Labs CBC & Chem 7: 11/25/24 05:25 11/25/24 05:25 Labs: Abnormal Lab Results - Last 24 Hours (Table) 11/24/24 11/25/24 11/25/24 Range/Units 04:45 05:25 05:25 RBC 4.25 L (4.40-5.60) X 10*6/uL Hgb 12.0 L (13.0-17.0) g/dL Hct 36.8 L (39.6-50.0) % Immature Gran # 0.06 H (0.00-0.04) X 10*3/uL BUN 5.2 L 5.2 L (9.0-27.0) mg/dL BUN/Creatinine Ratio 8.67 L 8.67 L (12.00-20.00) Ratio Calcium 8.2 L 8.5 L (8.7-10.3) mg/dL
--- NOTE | 2024-11-25 14:56 | P.DS ---
Providers Date of admission: 11/19/24 07:04 Attending physician: Estiven Mcclendon DO Consults: 11/19/24 12:12 Consult Physician Routine Consulting Provider: Sandra Reilly Consult Reason/Comments: Medical Management s/p Robotic Right Hemicolectomy Do you want consulting provider notified?: Yes Primary care physician: Hira Larios MD Hospital Course: Discharge diagnosis 1. Recurrent small bowel obstruction with right lower quadrant phlegmon and history of perforated appendicitis 2. Ileus Hospital course This is a 73-year-old male who had recurrent small bowel obstruction secondary to perforated appendicitis with associated phlegmon. He is status post right hemicolectomy. Patient tolerated surgery well. His pain is controlled. He is having bowel movements. He is tolerating diet. He has been up and ambulating. He is afebrile. He is stable for discharge. Further chart for further details. Physician Can Striper note has been reviewed by physician. Signing provider agrees with the documented findings, assessment, and plan of care. Attestation Patient seen and examined at bedside on 11/25/2024. Status post right hemicolectomy. Pain is controlled. Having bowel function. Tolerating diet. CINTIA drain to be removed prior to discharge. Surgically stable for discharge. Follow-up as outpatient. Wound care and activity instructions were provided to the patient. Diet instructions provided. Marti Hanley DO Patient Condition at Discharge: Stable Plan - Discharge Summary Discharge Rx Participant: No New Discharge Prescriptions: New HYDROcodone/APAP 5-325MG [[place] 5-325] 1 tab PO Q6HR PRN 3 Days #12 tab PRN Reason: Pain Continue amLODIPine [Norvasc] 10 mg PO QAM Atorvastatin [Lipitor] 40 mg PO QAM No Action Neomycin 1,000 mg PO TID PRN PRN Reason: Day prior to procedure. Erythromycin Base [Erythromycin] 1,000 mg PO TID PRN PRN Reason: Day prior to procedure. Discharge Medication List amLODIPine [Norvasc] 10 mg PO QAM 08/30/24 [History] Atorvastatin [Lipitor] 40 mg PO QAM 09/30/24 [History] Erythromycin Base [Erythromycin] 1,000 mg PO TID PRN 11/12/24 [History] Neomycin 1,000 mg PO TID PRN 11/12/24 [History] HYDROcodone/APAP 5-325MG [[place] 5-325] 1 tab PO Q6HR PRN 3 Days #12 tab 11/25/24 [Rx] Follow up Appointment(s)/Referral(s): Estiven Mcclendon DO [Medical Doctor] - 11/30/24 Patient Instructions/Handouts: Colectomy (DC) Activity/Diet/Wound Care/Special Instructions: No driving while taking [place] No lifting over 10 pounds You may shower. No soaking or tub baths for 2 weeks Very light activity until you are reevaluated at your follow up appointment with your surgeon Discharge Disposition: HOME SELF-CARE
== END 2024-11-25 11:30 | disposition home or self-care (01) | DRG 330 ==
LOC: 2ORMAIN 07:04 → 6NMEDSUR 14:12
PROVIDERS: ADMIT Surgery; ATTEND Surgery
PROC: 8E0W4CZ Robotic Assisted Procedure of Trunk Region, Percutaneous Endoscopic Approach (ICD-10-PCS; 2024-11-19)
PROC: 0DTF4ZZ Resection of Right Large Intestine, Percutaneous Endoscopic Approach (ICD-10-PCS; principal; 2024-11-19 09:00)
DX: K35.33 Acute appendicitis with perforation, localized peritonitis, and gangrene, with abscess (principal); K56.7 Ileus, unspecified; I10 Essential (primary) hypertension; E78.5 Hyperlipidemia, unspecified; Z79.899 Other long term (current) drug therapy; Z87.891 Personal history of nicotine dependence; E87.6 Hypokalemia
CPT/HCPCS: 74019; 80048; 80053; 83735; 85025